=== PATIENT | male | born 1960 | race Caucasian/White ===

== ENCOUNTER 2016-10-01 11:22 | Observation (INO) | payer BC ==
--- NOTE | 2016-10-01 11:54 | ED ---
General Adult HPI - General Chief complaint: Chest Pain Stated complaint: RT SIDE CHEST AND BACK PAIN Time Seen by Provider: 10/01/16 11:26 Source: patient, RN notes reviewed, old records reviewed Mode of arrival: wheelchair Limitations: no limitations - History of Present Illness Initial comments: This is a 55-year-old out of the ER with severe chest pain, severe and anterior right-sided chest pain. No stress of breath no diaphoresis, symptoms occurred at work and it progressed. Patient does have significant heart disease and history of bypass. No prior are no recent cardiac evaluation - Related Data Home Medications Medication Instructions Recorded Confirmed Cetirizine HCl [Zyrtec] 10 mg PO DAILY 09/24/13 10/01/16 Furosemide [Lasix] 40 mg PO DAILY 09/24/13 10/01/16 Glimepiride [Amaryl] 2 mg PO AC-BRKFST 09/24/13 10/01/16 Lisinopril [Zestril] 20 mg PO BID 09/24/13 10/01/16 Pantoprazole Sodium 40 mg PO BID PRN 09/24/13 10/01/16 Potassium Chloride [Klor-Con 10] 10 meq PO DAILY 09/24/13 10/01/16 sitaGLIPtin PHOS/metFORMIN HCL 1 tab PO BID 09/24/13 10/01/16 [Janumet 50-1,000 mg Tablet] Ascorbic Acid [Vitamin C] 500 mg PO DAILY 03/19/14 10/01/16 Cholecalciferol [Vitamin D3] 1,000 unit PO DAILY 03/19/14 10/01/16 Isosorbide Mononitrate ER [Imdur] 30 mg PO DAILY 03/19/14 10/01/16 Cinnamon Bark [Cinnamon] 2,000 mg PO DAILY 05/30/15 10/01/16 Cyanocobalamin [Vitamin B-12] 1,000 mcg PO DAILY 05/30/15 10/01/16 Garlic 2 tab PO DAILY 05/30/15 10/01/16 Pravastatin Sodium [Pravachol] 80 mg PO HS 05/30/15 10/01/16 Metoprolol Tartrate [Lopressor] 100 mg PO BID 01/08/16 10/01/16 Multivit-Min/FA/Lycopen/Lutein 1 tab PO DAILY 01/08/16 10/01/16 [Centrum Silver Tablet] [place]-3 Fatty Acids/Fish Oil [Fish 1 cap PO DAILY 01/08/16 10/01/16 Oil 1,000 mg Softgel] Previous Rx's Medication Instructions Recorded Aspirin EC [Ecotrin Low Dose] 81 mg PO DAILY #30 tablet. 01/09/16 Allergies Allergy/AdvReac Type Severity Reaction Status Date / Time No Known Allergies Allergy Verified 10/01/16 13:20 Review of Systems ROS Statement: Those systems with pertinent positive or pertinent negative responses have been documented in the HPI. ROS Other: All systems not noted in ROS Statement are negative. Past Medical History Past Medical History: Chest Pain / Angina, Diabetes Mellitus, Hyperlipidemia, Hypertension Additional Past Medical History / Comment(s): gout, stress test History of Any Multi-Drug Resistant Organisms: None Reported Past Surgical History: Cholecystectomy, Coronary Bypass/CABG, Heart Catheterization With Stent Additional Past Surgical History / Comment(s): CABG AUGUST 2012 AT [facility], HEART CATH WITH STENTS X 2 A FEW YEARS PRIOR TO CABG AT [facility] Past Anesthesia/Blood Transfusion Reactions: No Reported Reaction Additional Past Anesthesia/Blood Transfusion Reaction / Comment(s): blood transfusion w/ cabg-no reacation Date of Last Stent Placement:: unk Past Psychological History: No Psychological Hx Reported Smoking Status: Never smoker Past Alcohol Use History: None Reported Past Drug Use History: None Reported - Past Family History Father History Unknown: Yes Family Medical History: Myocardial Infarction ([place]), Rheumatoid Arthritis ([place]) Additional Family Medical History / Comment(s): at 46 from [place], rheumatic fever when younger Mother Family Medical History: Dementia, Diabetes Mellitus General Exam Limitations: no limitations General appearance: alert, in no apparent distress Head exam: Present: atraumatic, normocephalic, normal inspection Eye exam: Present: normal appearance, PERRL, EOMI. Absent: scleral icterus, conjunctival injection, periorbital swelling ENT exam: Present: normal exam, mucous membranes moist Neck exam: Present: normal inspection. Absent: tenderness, meningismus, lymphadenopathy Respiratory exam: Present: normal lung sounds bilaterally. Absent: respiratory distress, wheezes, rales, rhonchi, stridor Cardiovascular Exam: Present: regular rate, normal rhythm, normal heart sounds. Absent: systolic murmur, diastolic murmur, rubs, gallop, clicks GI/Abdominal exam: Present: soft, normal bowel sounds. Absent: distended, tenderness, guarding, rebound, rigid Extremities exam: Present: normal inspection, full ROM, normal capillary refill. Absent: tenderness, pedal edema, joint swelling, calf tenderness Back exam: Present: normal inspection Neurological exam: Present: alert, oriented X3, CN II-XII intact Psychiatric exam: Present: normal affect, normal mood Skin exam: Present: warm, dry, intact, normal color. Absent: rash Course Vital Signs 10/01/16 10/01/16 11:23 12:42 Temperature 99.3 F Pulse Rate 82 79 Respiratory 16 20 Rate Blood Pressure 159/72 125/70 O2 Sat by Pulse 98 99 Oximetry - Reevaluation(s) Reevaluation #1: 10/01/16 13:46 Patient with continued chest pain at this time EKG Findings - EKG Comments: EKG Findings:: EKG shows normal sinus rhythm rate of 78, [place] 164, QRS 100, QTC 444 Medical Decision Making - Medical Decision Making 55 Male ER for evaluation today. This patient is visiting for evaluation regarding chest pain. History of chest pain history of heart disease history of bypass. Patient be admitted for cardiac observation - Lab Data Result diagrams: 10/01/16 12:12 10/01/16 12:12 Lab Results 10/01/16 10/01/16 10/01/16 Range/Units 12:12 12:12 12:12 WBC 5.4 (3.8-10.6) k/uL RBC 4.29 L (4.30-5.90) m/uL Hgb 13.5 (13.0-17.5) gm/dL Hct 38.5 L (39.0-53.0) % MCV 89.7 (80.0-100.0) fL MCH 31.5 (25.0-35.0) pg MCHC 35.1 (31.0-37.0) g/dL RDW 13.9 (11.5-15.5) % Plt Count 188 (150-450) k/uL Neutrophils % 68 % Lymphocytes % 21 % Monocytes % 6 % Eosinophils % 3 % Basophils % 1 % Neutrophils # 3.7 (1.3-7.7) k/uL Lymphocytes # 1.1 (1.0-4.8) k/uL Monocytes # 0.3 (0-1.0) k/uL Eosinophils # 0.2 (0-0.7) k/uL Basophils # 0.1 (0-0.2) k/uL PT (9.0-12.0) sec INR (<1.2) APTT (22.0-30.0) sec D-Dimer (<0.60) mg/L FEU Sodium 138 (137-145) mmol/L Potassium 4.7 (3.5-5.1) mmol/L Chloride 103 (98-107) mmol/L Carbon Dioxide 27 (22-30) mmol/L Anion Gap 8 mmol/L BUN 24 H (9-20) mg/dL Creatinine 1.04 (0.66-1.25) mg/dL Est GFR (MDRD) Af Amer >60 (>60 ml/min/1.73 sqM) Est GFR (MDRD) Non-Af >60 (>60 ml/min/1.73 sqM) Glucose 157 H (74-99) mg/dL Calcium 9.7 (8.4-10.2) mg/dL Magnesium 1.5 L (1.6-2.3) mg/dL Total Bilirubin 0.3 (0.2-1.3) mg/dL AST 17 (17-59) U/L ALT 38 (21-72) U/L Alkaline Phosphatase 56 (38-126) U/L Total Creatine Kinase 42 L (55-170) U/L CK-MB (CK-2) 1.4 (0.0-2.4) ng/mL CK-MB (CK-2) Rel Index 3.3 Troponin I <0.012 (0.000-0.034) ng/mL Total Protein 6.5 (6.3-8.2) g/dL Albumin 4.0 (3.5-5.0) g/dL Lipase 114 (23-300) U/L 10/01/16 Range/Units 12:12 WBC (3.8-10.6) k/uL RBC (4.30-5.90) m/uL Hgb (13.0-17.5) gm/dL Hct (39.0-53.0) % MCV (80.0-100.0) fL MCH (25.0-35.0) pg MCHC (31.0-37.0) g/dL RDW (11.5-15.5) % Plt Count (150-450) k/uL Neutrophils % % Lymphocytes % % Monocytes % % Eosinophils % % Basophils % % Neutrophils # (1.3-7.7) k/uL Lymphocytes # (1.0-4.8) k/uL Monocytes # (0-1.0) k/uL Eosinophils # (0-0.7) k/uL Basophils # (0-0.2) k/uL PT 9.9 (9.0-12.0) sec INR 1.0 (<1.2) APTT 22.1 (22.0-30.0) sec D-Dimer 0.25 (<0.60) mg/L FEU Sodium (137-145) mmol/L Potassium (3.5-5.1) mmol/L Chloride (98-107) mmol/L Carbon Dioxide (22-30) mmol/L Anion Gap mmol/L BUN (9-20) mg/dL Creatinine (0.66-1.25) mg/dL Est GFR (MDRD) Af Amer (>60 ml/min/1.73 sqM) Est GFR (MDRD) Non-Af (>60 ml/min/1.73 sqM) Glucose (74-99) mg/dL Calcium (8.4-10.2) mg/dL Magnesium (1.6-2.3) mg/dL Total Bilirubin (0.2-1.3) mg/dL AST (17-59) U/L ALT (21-72) U/L Alkaline Phosphatase (38-126) U/L Total Creatine Kinase (55-170) U/L CK-MB (CK-2) (0.0-2.4) ng/mL CK-MB (CK-2) Rel Index Troponin I (0.000-0.034) ng/mL Total Protein (6.3-8.2) g/dL Albumin (3.5-5.0) g/dL Lipase (23-300) U/L - Radiology Data Radiology results: report reviewed (Chest x-ray is negative for acute disease), image reviewed Critical Care Time Critical Care Time: Yes Total Critical Care Time: 31 Disposition Clinical Impression: Unstable angina pectoris, Chest pain Disposition: ADMITTED IP TO THIS HOSP Condition: Undetermined Instructions: Chest Pain (ED) Referrals: Sana Wills MD [Primary Care Provider] - 1-2 days
[2016-10-01 12:24] LABS: Basophils # (A) 0.1 k/uL (0-0.2); Basophils % (A) 1 %; CH 31.5; CHCM 35.3; Eosinophils # (A) 0.2 k/uL (0-0.7); Eosinophils % (A) 3 %; HCT 38.5 % (39.0-53.0); HDW 2.76; HGB 13.5 gm/dL (13.0-17.5); Luc # (Auto) 0.09; Luc % (Auto) 2; Lymphocytes # (A) 1.1 k/uL (1.0-4.8); Lymphocytes % (A) 21 %; MCH 31.5 pg (25.0-35.0); MCHC 35.1 g/dL (31.0-37.0); MCV 89.7 fL (80.0-100.0); Mean Platelet Volume 8.1; Monocytes # (A) 0.3 k/uL (0-1.0); Monocytes % (A) 6 %; Neutrophils # (A) 3.7 k/uL (1.3-7.7); Neutrophils % (A) 68 %; RBC 4.29 m/uL (4.30-5.90); RDW 13.9 % (11.5-15.5); WBC 5.4 k/uL (3.8-10.6)
--- NOTE | 2016-10-01 12:30 | XR ---
EXAMINATION TYPE: XR chest 2V DATE OF EXAM: 10/01/2016 COMPARISON: January 08, 2016 HISTORY: Shortness of breath TECHNIQUE: Frontal and lateral views of the chest are obtained. FINDINGS: Scattered senescent parenchymal changes noted. Hyperinflation compatible with COPD. No evidence for infiltrate. No evidence for atelectasis. Heart size is stable. Mediastinal structures are stable and grossly unremarkable. No evidence for hilar prominence. Degenerative changes dorsal spine. IMPRESSION: 1. No evidence for acute pulmonary disease.
[2016-10-01 12:36] LABS: ALT 38 U/L (21-72); AST 17 U/L (17-59); Alkaline Phosphatase 56 U/L (38-126); Anion Gap 8 mmol/L; Blood Urea Nitrogen 24 mg/dL (9-20); Calcium 9.7 mg/dL (8.4-10.2); Carbon Dioxide 27 mmol/L (22-30); Chloride 103 mmol/L (98-107); Glucose 157 mg/dL (74-99); Magnesium 1.5 mg/dL (1.6-2.3); Non-African American GFR(MDRD) >60 (>60 ml/min/1.73 sqM); Potassium 4.7 mmol/L (3.5-5.1); Sodium 138 mmol/L (137-145); Total Bilirubin 0.3 mg/dL (0.2-1.3); Total Protein 6.5 g/dL (6.3-8.2)
[2016-10-01 12:47] LABS: Partial Thromboplastin Time 22.1 sec (22.0-30.0); Prothrombin Time 9.9 sec (9.0-12.0)
[2016-10-01 12:51] LABS: Creatine Kinase 42 U/L (55-170)
[2016-10-01 13:04] LABS: Creatine Kinase MB 1.4 ng/mL (0.0-2.4); Troponin I <0.012 ng/mL (0.000-0.034)
[2016-10-01] MEDS ORDERED: HEPARIN SODIUM,PORCINE 5,000 UNIT/ML 1 ML VIAL IV PRN (13:43)
[2016-10-01] MEDS ORDERED: NITROGLYCERIN SL TABS 0.4 MG TAB SUBLINGUAL PRN (13:43)
[2016-10-01] MEDS ORDERED: HEPARIN SODIUM,PORCINE 5,000 UNIT/ML 1 ML VIAL IV ONE (13:43)
[2016-10-01] MEDS ORDERED: ASPIRIN 81 MG CHEW PO STA (13:43)
[2016-10-01] MEDS: HEPARIN SODIUM,PORCINE/D5W PMX 25,000 UNIT in DEXTROSE/WATER 1 500ML.BAG IV SCH (14:38)
[2016-10-01 17:08] LABS: Glucose,Whole Blood 138 mg/dL (75-99)
[2016-10-01] MEDS ORDERED: PANTOPRAZOLE 40 MG TABLET PO PRN (17:36)
[2016-10-01 18:24] LABS: Creatine Kinase 143 U/L (55-170)
[2016-10-01 18:37] LABS: Creatine Kinase MB 1.5 ng/mL (0.0-2.4); Troponin I <0.012 ng/mL (0.000-0.034)
[2016-10-01 20:49] LABS: Glucose,Whole Blood 205 mg/dL (75-99)
[2016-10-01] MEDS: PRAVASTATIN SODIUM 80 MG TAB PO SCH (21:24)
[2016-10-01] MEDS: LISINOPRIL 20 MG TAB PO SCH (21:24)
[2016-10-01] MEDS: METOPROLOL TARTRATE 50 MG TAB PO SCH (21:24)
[2016-10-01 22:33] LABS: Hemoglobin A1C 7.6 % (4.2-6.1)
[2016-10-02 01:18] LABS: Creatine Kinase 104 U/L (55-170)
[2016-10-02 01:29] LABS: Creatine Kinase MB 1.3 ng/mL (0.0-2.4); Troponin I <0.012 ng/mL (0.000-0.034)
[2016-10-02 06:59] LABS: Glucose,Whole Blood 221 mg/dL (75-99)
[2016-10-02] MEDS ORDERED: metFORMIN 500 MG TAB PO SCH (07:30)
[2016-10-02 07:39] LABS: Mean Platelet Volume 7.7
[2016-10-02 07:52] LABS: Cholesterol 165 mg/dL (<200); HDL Cholesterol 35 mg/dL (40-60)
[2016-10-02] MEDS ORDERED: NON-FORMULARY DRUG (Omega-3 Fatty Acids/Fish Oil [Fish Oil 1,000 Mg Softgel] 1 CAP) PO SCH (09:00)
[2016-10-02] MEDS ORDERED: CINNAMON BARK 2000 MG PO SCH (09:00)
[2016-10-02] MEDS ORDERED: GARLIC PO SCH (09:00)
[2016-10-02 09:31] LABS: Basophils % (A) 1 %; CHCM 34.2; Eosinophils # (A) 0.2 k/uL (0-0.7); Eosinophils % (A) 4 %; HCT 38.5 % (39.0-53.0); HDW 2.74; HGB 13.2 gm/dL (13.0-17.5); Luc # (Auto) 0.08; Luc % (Auto) 2; Lymphocytes # (A) 1.1 k/uL (1.0-4.8); Lymphocytes % (A) 29 %; MCH 31.2 pg (25.0-35.0); MCHC 34.2 g/dL (31.0-37.0); MCV 91.1 fL (80.0-100.0); Monocytes # (A) 0.2 k/uL (0-1.0); Monocytes % (A) 6 %; Neutrophils # (A) 2.2 k/uL (1.3-7.7); Neutrophils % (A) 58 %; RBC 4.23 m/uL (4.30-5.90); RDW 13.2 % (11.5-15.5); WBC 3.9 k/uL (3.8-10.6); WBC (Perox) 4.31
[2016-10-02 09:39] LABS: ALT 40 U/L (21-72); AST 16 U/L (17-59); Alkaline Phosphatase 54 U/L (38-126); Anion Gap 9 mmol/L; Blood Urea Nitrogen 18 mg/dL (9-20); Calcium 9.6 mg/dL (8.4-10.2); Carbon Dioxide 25 mmol/L (22-30); Chloride 106 mmol/L (98-107); Glucose 210 mg/dL (74-99); Non-African American GFR(MDRD) >60 (>60 ml/min/1.73 sqM); Potassium 4.5 mmol/L (3.5-5.1); Sodium 140 mmol/L (137-145); Total Bilirubin 0.4 mg/dL (0.2-1.3)
[2016-10-02] MEDS: ASPIRIN 81 MG CHEW PO SCH (10:04)
--- NOTE | 2016-10-02 10:36 | P.HPIM ---
History of Present Illness H&P Date: 10/02/16 Chief Complaint: Chest pain This is a 55-year-old male, patient of Dr. Wills. He has a known past medical history of hypertension, hyperlipidemia, diabetes mellitus, anxiety, coronary artery disease with previous CABG in 2012 and history of cardiac stents. Patient reports having chest pain on the right side of his chest and in the back started yesterday at 9:00 in the morning at work. He went home from work and was still having the chest pain so he presented to the emergency room for further evaluation and treatment. Patient also is having some a pheresis and nausea. He denies any shortness of breath. He does report that the pain didn' t move up into the right side of his neck. His last stress test was in May 2015 which was negative. Chest x-rays for today is negative EKG had shown a normal sinus rhythm and troponins are negative 2. Patient started on IV heparin in the emergency room and cardiology was consulted. Patient also reports having diarrhea that has been ongoing for the last couple a days. Nostrils been watery no blood reported. He is concerned of possible parasites. He was treated for possible parasites about [address] Wills's office. He is unsure of exact medication that was given. Stool studies have been ordered and he'll be started on Flagyl 500 mg 3 times a day. GI service will be consulted. His last colonoscopy was about 3 years ago and he reports having some polyps removed. D-dimer was 0.25. Hemoglobin A1c is 7.6. Review of Systems Please refer to HPI otherwise unremarkable Past Medical History Past Medical History: Chest Pain / Angina, Diabetes Mellitus, Hyperlipidemia, Hypertension Additional Past Medical History / Comment(s): gout, stress test History of Any Multi-Drug Resistant Organisms: None Reported Past Surgical History: Cholecystectomy, Coronary Bypass/CABG, Heart Catheterization With Stent Additional Past Surgical History / Comment(s): QUAD CABG AUGUST 2012 AT [facility], HEART CATH WITH STENTS X 2 A FEW YEARS PRIOR TO CABG AT [facility],COLONOSOCPY/ POLYPECTOMY(BENIGN) Past Anesthesia/Blood Transfusion Reactions: No Reported Reaction Additional Past Anesthesia/Blood Transfusion Reaction / Comment(s): blood transfusion w/ cabg-no reacation Date of Last Stent Placement:: unk Smoking Status: Never smoker - Past Family History Father History Unknown: Yes Family Medical History: Myocardial Infarction ([place]), Rheumatoid Arthritis ([place]) Additional Family Medical History / Comment(s): at 46 from mi, rheumatic fever when younger Mother Family Medical History: Dementia, Diabetes Mellitus Medications and Allergies Home Medications Medication Instructions Recorded Confirmed Type Cetirizine HCl [Zyrtec] 10 mg PO DAILY 09/24/13 10/01/16 History Furosemide [Lasix] 40 mg PO DAILY 09/24/13 10/01/16 History Glimepiride [Amaryl] 2 mg PO AC-BRKFST 09/24/13 10/01/16 History Lisinopril [Zestril] 20 mg PO BID 09/24/13 10/01/16 History Pantoprazole Sodium 40 mg PO BID PRN 09/24/13 10/01/16 History Potassium Chloride [Klor-Con 10] 10 meq PO DAILY 09/24/13 10/01/16 History sitaGLIPtin PHOS/metFORMIN HCL 1 tab PO BID 09/24/13 10/01/16 History [Janumet 50-1,000 mg Tablet] Ascorbic Acid [Vitamin C] 500 mg PO DAILY 03/19/14 10/01/16 History Cholecalciferol [Vitamin D3] 1,000 unit PO DAILY 03/19/14 10/01/16 History Isosorbide Mononitrate ER [Imdur] 30 mg PO DAILY 03/19/14 10/01/16 History Cinnamon Bark [Cinnamon] 2,000 mg PO DAILY 05/30/15 10/01/16 History Cyanocobalamin [Vitamin B-12] 1,000 mcg PO DAILY 05/30/15 10/01/16 History Garlic 2 tab PO DAILY 05/30/15 10/01/16 History Pravastatin Sodium [Pravachol] 80 mg PO HS 05/30/15 10/01/16 History Metoprolol Tartrate [Lopressor] 100 mg PO BID 01/08/16 10/01/16 History Multivit-Min/FA/Lycopen/Lutein 1 tab PO DAILY 01/08/16 10/01/16 History [Centrum Silver Tablet] [place]-3 Fatty Acids/Fish Oil [Fish 1 cap PO DAILY 01/08/16 10/01/16 History Oil 1,000 mg Softgel] Allergies Allergy/AdvReac Type Severity Reaction Status Date / Time No Known Allergies Allergy Verified 10/01/16 13:20 Physical Exam Vitals: Vital Signs Temp Pulse Pulse Resp BP BP Pulse Ox 10/02/16 09:10 96 10/02/16 07:48 98.5 F 67 16 134/84 97 10/02/16 04:00 72 18 10/02/16 03:23 98.7 F 75 18 145/72 97 10/02/16 00:00 66 16 10/01/16 23:44 98.8 F 66 16 135/69 95 10/01/16 20:00 78 16 10/01/16 19:53 98.4 F 78 16 113/60 95 10/01/16 15:12 98.0 F 72 18 140/79 98 10/01/16 14:48 97.8 F 77 16 123/78 98 10/01/16 14:15 98.0 F 77 16 118/72 98 10/01/16 12:42 79 20 125/70 99 10/01/16 11:23 99.3 F 82 16 159/72 98 Intake and Output 10/01/16 10/02/16 10/02/16 22:59 06:59 14:59 Intake Total 920 477 Balance 920 477 Intake: IV 120 284 0.9 NS @ 10ml/hr 40 80 Heparin Sodium,Porcine/ 80 204 D5w Pmx 25,000 unit In Dextrose/Water 1 500ml. bag @ 9.186 UNITS/KG/HR 20 mls/hr IV .Q24H ЕКАТЕРИНА Rx #:[id number] Intake, IV Titration 193 Amount Heparin Sodium,Porcine/ 193 D5w Pmx 25,000 unit In Dextrose/Water 1 500ml. bag @ 9.186 UNITS/KG/HR 20 mls/hr IV .Q24H ЕКАТЕРИНА Rx #:[id number] Oral 800 Other: Voiding Method Toilet Toilet # Voids 2 4 Weight 110.9 kg Head normocephalic Neck supple Lungs clear to auscultation bilaterally no wheezing or crackles Heart regular rate and rhythm S1-S2, no rub or gallop Abdomen is soft nontender nondistended positive bowel sounds no hepatosplenomegaly Extremities no edema Neuro alert and orientated to 3 Results CBC & Chem 7: 10/02/16 06:56 10/02/16 06:56 Labs: Abnormal Lab Results - Last 24 Hours (Table) 10/01/16 10/01/16 10/01/16 Range/Units 12:12 12:12 12:12 RBC 4.29 L (4.30-5.90) m/uL Hct 38.5 L (39.0-53.0) % APTT (22.0-30.0) sec BUN 24 H (9-20) mg/dL Glucose 157 H (74-99) mg/dL POC Glucose (mg/dL) (75-99) mg/dL Hemoglobin A1c (4.2-6.1) % Magnesium 1.5 L (1.6-2.3) mg/dL AST (17-59) U/L Total Creatine Kinase 42 L (55-170) U/L Total Protein (6.3-8.2) g/dL Albumin (3.5-5.0) g/dL Triglycerides (<150) mg/dL HDL Cholesterol (40-60) mg/dL 10/01/16 10/01/16 10/01/16 Range/Units 17:06 20:39 20:46 RBC (4.30-5.90) m/uL Hct (39.0-53.0) % APTT (22.0-30.0) sec BUN (9-20) mg/dL Glucose (74-99) mg/dL POC Glucose (mg/dL) 138 H 205 H (75-99) mg/dL Hemoglobin A1c 7.6 H (4.2-6.1) % Magnesium (1.6-2.3) mg/dL AST (17-59) U/L Total Creatine Kinase (55-170) U/L Total Protein (6.3-8.2) g/dL Albumin (3.5-5.0) g/dL Triglycerides (<150) mg/dL HDL Cholesterol (40-60) mg/dL 10/02/16 10/02/16 10/02/16 Range/Units 06:48 06:56 06:56 RBC 4.23 L (4.30-5.90) m/uL Hct 38.5 L (39.0-53.0) % APTT (22.0-30.0) sec BUN (9-20) mg/dL Glucose (74-99) mg/dL POC Glucose (mg/dL) 221 H (75-99) mg/dL Hemoglobin A1c (4.2-6.1) % Magnesium (1.6-2.3) mg/dL AST (17-59) U/L Total Creatine Kinase (55-170) U/L Total Protein (6.3-8.2) g/dL Albumin (3.5-5.0) g/dL Triglycerides 222 H (<150) mg/dL HDL Cholesterol 35 L (40-60) mg/dL 10/02/16 10/02/16 Range/Units 06:56 06:56 RBC (4.30-5.90) m/uL Hct (39.0-53.0) % APTT 34.8 H (22.0-30.0) sec BUN (9-20) mg/dL Glucose 210 H (74-99) mg/dL POC Glucose (mg/dL) (75-99) mg/dL Hemoglobin A1c (4.2-6.1) % Magnesium (1.6-2.3) mg/dL AST 16 L (17-59) U/L Total Creatine Kinase (55-170) U/L Total Protein 6.0 L (6.3-8.2) g/dL Albumin 3.4 L (3.5-5.0) g/dL Triglycerides (<150) mg/dL HDL Cholesterol (40-60) mg/dL Microbiology - Last 24 Hours (Table) 10/01/16 13:00 Stool Culture - Preliminary Stool Assessment and Plan Plan: 1. Chest pain: Troponins negative 2 sets. EKG showing normal sinus rhythm. Chest x-ray negative. Patient on IV heparin. Cardiology consulted. Previous stress test May 2015 which was negative 2. Diarrhea with possible parasites. Stool studies ordered. Patient will be started on Flagyl 500 mg 3 times a day. GI service consulted. 3. History of coronary artery disease with previous coronary bypass graft in August 2012. Also history of cardiac stents 4. Essential hypertension blood pressure stable. Resume home blood pressure medications 5. Hyperlipidemia continue statin 6. Diabetes mellitus type 2: Hold metformin and hospitalization. We'll add sliding scale coverage. Continue trigger gentle 5 mg daily and Amaryl 2 mg with breakfast 7. Hypomagnesemia: Magnesium level 1.5. Recheck magnesium level today if remains low we'll replace GI prophylaxis Protonix and DVT prophylaxis heparin IV Time with Patient: Greater than 30 (Greater than 50% of the total time spent in counseling and coordination of care.I performed an examination of the patient and discussed their management with the physician Swiss Machinist. I have reviewed the Physician Swiss Machinist's notes and agree with the documented findings and plan of care)
--- NOTE | 2016-10-02 10:39 | P.CRDCN ---
History of Present Illness Consult date: 10/02/16 History of present illness: This is a 55-year-old gentleman with history of coronary artery disease, hypertension, hyperlipidemia and diabetes mellitus with previous bypass surgery done in 2012. Patient had a ESPINOZA graft to the LAD, vein graft to the OM branch 1 and 2 and the vein graft to the diagonal. Patient had a cardiac catheterization 2013 and was noted to have patent ESPINOZA and graft to OM but occluded vein graft to the diagonal. Since then patient had admissions from time to time with atypical chest pain the last one being in January 2016. Yesterday he presented to the emergency room because of chest pain which is right-sided going to the back lasting about 10 minutes. Patient will mildly sweaty. No complaints of nausea vomiting or sweating. Patient has been stable since that time. His EKG did not reveal any acute changes. His cardiac enzymes are negative. His pains appear to be atypical, lasting only 10 minutes. Since then patient has been stable. Patient could be discharged home. Follow-up and evaluation as an outpatient by Dr. Jefferson in one week Review of Systems As per the chart Past Medical History Past Medical History: Chest Pain / Angina, Diabetes Mellitus, Hyperlipidemia, Hypertension Additional Past Medical History / Comment(s): gout, stress test History of Any Multi-Drug Resistant Organisms: None Reported Past Surgical History: Cholecystectomy, Coronary Bypass/CABG, Heart Catheterization With Stent Additional Past Surgical History / Comment(s): QUAD CABG AUGUST 2012 AT [facility], HEART CATH WITH STENTS X 2 A FEW YEARS PRIOR TO CABG AT [facility],COLONOSOCPY/ POLYPECTOMY(BENIGN) Past Anesthesia/Blood Transfusion Reactions: No Reported Reaction Additional Past Anesthesia/Blood Transfusion Reaction / Comment(s): blood transfusion w/ cabg-no reacation Date of Last Stent Placement:: unk Smoking Status: Never smoker - Past Family History Father History Unknown: Yes Family Medical History: Myocardial Infarction ([place]), Rheumatoid Arthritis ([place]) Additional Family Medical History / Comment(s): at 46 from [place], rheumatic fever when younger Mother Family Medical History: Dementia, Diabetes Mellitus Medications and Allergies Home Medications Medication Instructions Recorded Confirmed Type Cetirizine HCl [Zyrtec] 10 mg PO DAILY 09/24/13 10/01/16 History Furosemide [Lasix] 40 mg PO DAILY 09/24/13 10/01/16 History Glimepiride [Amaryl] 2 mg PO AC-BRKFST 09/24/13 10/01/16 History Lisinopril [Zestril] 20 mg PO BID 09/24/13 10/01/16 History Pantoprazole Sodium 40 mg PO BID PRN 09/24/13 10/01/16 History Potassium Chloride [Klor-Con 10] 10 meq PO DAILY 09/24/13 10/01/16 History sitaGLIPtin PHOS/metFORMIN HCL 1 tab PO BID 09/24/13 10/01/16 History [Janumet 50-1,000 mg Tablet] Ascorbic Acid [Vitamin C] 500 mg PO DAILY 03/19/14 10/01/16 History Cholecalciferol [Vitamin D3] 1,000 unit PO DAILY 03/19/14 10/01/16 History Isosorbide Mononitrate ER [Imdur] 30 mg PO DAILY 03/19/14 10/01/16 History Cinnamon Bark [Cinnamon] 2,000 mg PO DAILY 05/30/15 10/01/16 History Cyanocobalamin [Vitamin B-12] 1,000 mcg PO DAILY 05/30/15 10/01/16 History Garlic 2 tab PO DAILY 05/30/15 10/01/16 History Pravastatin Sodium [Pravachol] 80 mg PO HS 05/30/15 10/01/16 History Metoprolol Tartrate [Lopressor] 100 mg PO BID 01/08/16 10/01/16 History Multivit-Min/FA/Lycopen/Lutein 1 tab PO DAILY 01/08/16 10/01/16 History [Centrum Silver Tablet] [place]-3 Fatty Acids/Fish Oil [Fish 1 cap PO DAILY 01/08/16 10/01/16 History Oil 1,000 mg Softgel] Allergies Allergy/AdvReac Type Severity Reaction Status Date / Time No Known Allergies Allergy Verified 10/01/16 13:20 Physical Exam Vitals: Vital Signs Temp Pulse Pulse Resp BP BP Pulse Ox 10/02/16 09:10 96 10/02/16 07:48 98.5 F 67 16 134/84 97 10/02/16 04:00 72 18 10/02/16 03:23 98.7 F 75 18 145/72 97 10/02/16 00:00 66 16 10/01/16 23:44 98.8 F 66 16 135/69 95 10/01/16 20:00 78 16 10/01/16 19:53 98.4 F 78 16 113/60 95 10/01/16 15:12 98.0 F 72 18 140/79 98 10/01/16 14:48 97.8 F 77 16 123/78 98 10/01/16 14:15 98.0 F 77 16 118/72 98 10/01/16 12:42 79 20 125/70 99 10/01/16 11:23 99.3 F 82 16 159/72 98 Intake and Output 10/01/16 10/02/16 10/02/16 22:59 06:59 14:59 Intake Total 920 477 Balance 920 477 Intake: IV 120 284 0.9 NS @ 10ml/hr 40 80 Heparin Sodium,Porcine/ 80 204 D5w Pmx 25,000 unit In Dextrose/Water 1 500ml. bag @ 9.186 UNITS/KG/HR 20 mls/hr IV .Q24H [facility] Rx #:[id number] Intake, IV Titration 193 Amount Heparin Sodium,Porcine/ 193 D5w Pmx 25,000 unit In Dextrose/Water 1 500ml. bag @ 9.186 UNITS/KG/HR 20 mls/hr IV .Q24H ЕКАТЕРИНА Rx #:[id number] Oral 800 Other: Voiding Method Toilet Toilet # Voids 2 4 Weight 110.9 kg GENERAL EXAM: Patient is alert and oriented and doesn't appear to be in any acute distress HEENT: Normocephalic. Normal reaction of pupils, equal size, normal range of extraocular motion. No erythema or exudates in the throat. NECK: No masses, no nuchal rigidity. CHEST: No chest wall deformity. LUNGS: Equal air entry with no crackles or wheeze. HEART: S1 and S2 normal with no audible mumurs or gallops. Regular rhythm, femorals equal on both sides.. ABDOMEN: No hepatosplenomegaly, normal bowel sounds, no guarding or rigidity. SKIN: No rashes CENTRAL NERVOUS SYSTEM: No focal deficits. EXTREMITIES: No cyanosis, clubbing or edema. Results 10/02/16 06:56 10/02/16 06:56 Cardiac Enzymes 10/01/16 10/01/16 10/01/16 Range/Units 12:12 12:12 17:45 AST 17 (17-59) U/L CK-MB (CK-2) 1.4 1.5 (0.0-2.4) ng/mL Troponin I <0.012 <0.012 (0.000-0.034) ng/mL 10/02/16 10/02/16 Range/Units 00:10 06:56 AST 16 L (17-59) U/L CK-MB (CK-2) 1.3 (0.0-2.4) ng/mL Troponin I <0.012 (0.000-0.034) ng/mL Coagulation 10/01/16 10/01/16 10/02/16 Range/Units 12:12 20:46 06:56 PT 9.9 (9.0-12.0) sec APTT 22.1 25.9 34.8 H (22.0-30.0) sec Lipids 10/02/16 Range/Units 06:56 Triglycerides 222 H (<150) mg/dL Cholesterol 165 (<200) mg/dL HDL Cholesterol 35 L (40-60) mg/dL CBC 10/01/16 10/02/16 Range/Units 12:12 06:56 WBC 5.4 3.9 (3.8-10.6) k/uL RBC 4.29 L 4.23 L (4.30-5.90) m/uL Hgb 13.5 13.2 (13.0-17.5) gm/dL Hct 38.5 L 38.5 L (39.0-53.0) % Plt Count 188 164 (150-450) k/uL Comprehensive Metabolic Panel 10/01/16 10/02/16 Range/Units 12:12 06:56 Sodium 138 140 (137-145) mmol/L Potassium 4.7 4.5 (3.5-5.1) mmol/L Chloride 103 106 (98-107) mmol/L Carbon Dioxide 27 25 (22-30) mmol/L BUN 24 H 18 (9-20) mg/dL Creatinine 1.04 0.93 (0.66-1.25) mg/dL Glucose 157 H 210 H (74-99) mg/dL Calcium 9.7 9.6 (8.4-10.2) mg/dL AST 17 16 L (17-59) U/L ALT 38 40 (21-72) U/L Alkaline Phosphatase 56 54 (38-126) U/L Total Protein 6.5 6.0 L (6.3-8.2) g/dL Albumin 4.0 3.4 L (3.5-5.0) g/dL Current Medications Generic Name Dose Route Start Last Admin Trade Name Freq PRN Reason Stop Dose Admin Ascorbic Acid 500 mg 10/02/16 09:00 Vitamin C PO DAILY [facility] Aspirin 325 mg 10/02/16 09:00 Aspirin PO DAILY [facility] Aspirin 81 mg 10/02/16 09:00 10/02/16 10:04 Aspirin PO Not Given DAILY [facility] Cholecalciferol 1,000 unit 10/02/16 09:00 Vitamin D3 PO DAILY [facility] Cyanocobalamin 1,000 mcg 10/02/16 09:00 Vitamin B-12 PO DAILY [facility] Furosemide 40 mg 10/02/16 09:00 Lasix PO DAILY [facility] Glimepiride 2 mg 10/02/16 07:30 Amaryl PO AC-BRKFST [facility] Heparin Sodium (Porcine) 0 unit 10/01/16 13:43 10/02/16 00:19 Heparin IV 4,000 unit Q6HR PRN Administration Low PTT Protocol Heparin Sodium/Dextrose 25,000 500 mls @ 20 mls/hr 10/01/16 13:45 10/02/16 00 :17 unit/ IV Solution IV 12.186 units/kg/hr .Q24H [facility] 26.53 mls/hr Protocol Titration 9.186 UNITS/KG/HR Insulin Human Lispro 0 unit 10/02/16 12:30 Humalog SQ ACHS [facility] Protocol Isosorbide Mononitrate 30 mg 10/02/16 09:00 Imdur PO DAILY [facility] Linagliptin 5 mg 10/02/16 09:00 Tradjenta PO DAILY [facility] Lisinopril 20 mg 10/01/16 21:00 10/01/16 21:24 Zestril PO 20 mg BID [facility] Administration Loratadine 10 mg 10/02/16 09:00 Claritin PO DAILY [facility] Metoprolol Tartrate 100 mg 10/01/16 21:00 10/01/16 21:24 Lopressor PO 100 mg BID [facility] Administration Metronidazole 500 mg 10/02/16 10:30 Flagyl PO TID [facility] Multivitamins 1 each 10/02/16 09:00 Theragran PO DAILY [facility] Nitroglycerin 0.4 mg 10/01/16 13:43 Nitrostat SUBLINGUAL Q5M PRN Chest Pain Potassium Chloride 10 meq 10/02/16 09:00 K-Dur 10 PO DAILY [facility] Pravastatin Sodium 80 mg 10/01/16 21:00 10/01/16 21:24 Pravachol PO 80 mg HS [facility] Administration Intake and Output 10/01/16 10/02/16 10/02/16 22:59 06:59 14:59 Intake Total 920 477 Balance 920 477 Intake: IV 120 284 0.9 NS @ 10ml/hr 40 80 Heparin Sodium,Porcine/ 80 204 D5w Pmx 25,000 unit In Dextrose/Water 1 500ml. bag @ 9.186 UNITS/KG/HR 20 mls/hr IV .Q24H [facility] Rx #:[id number] Intake, IV Titration 193 Amount Heparin Sodium,Porcine/ 193 D5w Pmx 25,000 unit In Dextrose/Water 1 500ml. bag @ 9.186 UNITS/KG/HR 20 mls/hr IV .Q24H [facility] Rx #:[id number] Oral 800 Other: Voiding Method Toilet Toilet # Voids 2 4 Weight 110.9 kg 10/02/16 06:56 10/02/16 06:56 EKG Interpretations (text) Sinus rhythm Assessment and Plan Plan: Patient's chest pain appeared to be typical. Cardec enzymes and EKGs are okay. Patient could be discharged home. Follow-up with Dr. Jefferson in one week
[2016-10-02] MEDS: ASCORBIC ACID 500 MG TAB PO SCH (11:10)
[2016-10-02] MEDS: GLIMEPIRIDE 2 MG TAB PO SCH (11:10)
[2016-10-02] MEDS: CHOLECALCIFEROL 1,000 UNIT TAB PO SCH (11:10)
[2016-10-02] MEDS: ASPIRIN 325 MG TAB PO SCH (11:10)
[2016-10-02] MEDS: CYANOCOBALAMIN 500 MCG TAB PO SCH (11:11)
[2016-10-02] MEDS: ISOSORBIDE MONONITRATE ER 30 MG TAB.ER.24H PO SCH (11:12)
[2016-10-02] MEDS: FUROSEMIDE 20 MG TAB PO SCH (11:12)
[2016-10-02] MEDS: LINAGLIPTIN 5 MG TABLET PO SCH (11:12)
[2016-10-02] MEDS: LISINOPRIL 20 MG TAB PO SCH ×2 (11:12→22:21)
[2016-10-02] MEDS: LORATADINE 10 MG TAB PO SCH (11:13)
[2016-10-02] MEDS: POTASSIUM CHLORIDE ER 10 MEQ TAB.ER.PRT PO SCH (11:13)
[2016-10-02] MEDS: METOPROLOL TARTRATE 50 MG TAB PO SCH ×2 (11:13→22:21)
[2016-10-02] MEDS: MULTIVITAMINS, THERA 1 EACH TAB PO SCH (11:13)
[2016-10-02] MEDS: metroNIDAZOLE 500 MG TAB PO SCH ×3 (11:14→22:21)
[2016-10-02 11:41] LABS: Hemoglobin A1C 7.6 % (4.2-6.1)
[2016-10-02 12:15] LABS: Glucose,Whole Blood 324 mg/dL (75-99)
[2016-10-02] MEDS: INSULIN LISPRO (humaLOG) 300 UNIT/3 ML VIAL SQ SCH ×2 (12:45→17:38)
--- NOTE | 2016-10-02 14:16 | XR ---
2 view abdomen HISTORY: Abdominal pain 2 views of the abdomen on 4 images correlated to prior exam 11/17/2012 Interval surgical clip placement in the right upper quadrant. There are overlying cardiac leads. Caprice ent is post median sternotomy. There are air-fluid levels without bowel distention. Calcifications garcia spected within the right kidney. Overlying bowel gas obscures detail. Probable phleboliths in the pel vis. Vascular calcifications also noted within the left groin. IMPRESSION: Right-sided nephrolithiasis. Correlate for ileus or enteritis.
[2016-10-02 17:33] LABS: Glucose,Whole Blood 97 mg/dL (75-99)
[2016-10-02] MEDS: HEPARIN SODIUM,PORCINE/D5W PMX 25,000 UNIT in DEXTROSE/WATER 1 500ML.BAG IV SCH (22:19)
[2016-10-02] MEDS: PRAVASTATIN SODIUM 80 MG TAB PO SCH (22:21)
[2016-10-02 22:38] LABS: Glucose,Whole Blood 139 mg/dL (75-99)
[2016-10-03] MEDS: INSULIN LISPRO (humaLOG) 300 UNIT/3 ML VIAL SQ SCH ×3 (03:19→16:04)
[2016-10-03 07:02] LABS: Basophils % (A) 1 %; CH 31.5; CHCM 34.8; Eosinophils # (A) 0.2 k/uL (0-0.7); Eosinophils % (A) 4 %; HCT 39.8 % (39.0-53.0); HDW 2.74; HGB 13.4 gm/dL (13.0-17.5); Luc # (Auto) 0.12; Luc % (Auto) 2; Lymphocytes # (A) 1.2 k/uL (1.0-4.8); Lymphocytes % (A) 24 %; MCH 30.6 pg (25.0-35.0); MCHC 33.5 g/dL (31.0-37.0); MCV 91.1 fL (80.0-100.0); Mean Platelet Volume 7.8; Monocytes # (A) 0.3 k/uL (0-1.0); Monocytes % (A) 6 %; Neutrophils # (A) 3.4 k/uL (1.3-7.7); Neutrophils % (A) 64 %; RBC 4.37 m/uL (4.30-5.90); RDW 14.2 % (11.5-15.5); WBC 5.3 k/uL (3.8-10.6); WBC (Perox) 5.13
[2016-10-03 07:15] LABS: Glucose,Whole Blood 177 mg/dL (75-99)
[2016-10-03] MEDS ORDERED: PANTOPRAZOLE 40 MG TABLET PO SCH (07:30)
[2016-10-03 07:32] LABS: ALT 39 U/L (21-72); AST 18 U/L (17-59); Alkaline Phosphatase 51 U/L (38-126); Anion Gap 6 mmol/L; Blood Urea Nitrogen 16 mg/dL (9-20); Calcium 9.8 mg/dL (8.4-10.2); Carbon Dioxide 27 mmol/L (22-30); Chloride 105 mmol/L (98-107); Glucose 167 mg/dL (74-99); Non-African American GFR(MDRD) >60 (>60 ml/min/1.73 sqM); Potassium 4.5 mmol/L (3.5-5.1); Sodium 138 mmol/L (137-145); Total Bilirubin 0.6 mg/dL (0.2-1.3); Total Protein 6.2 g/dL (6.3-8.2)
[2016-10-03] MEDS: GLIMEPIRIDE 2 MG TAB PO SCH (08:40)
[2016-10-03] MEDS: ASCORBIC ACID 500 MG TAB PO SCH (08:41)
[2016-10-03] MEDS: ASPIRIN 325 MG TAB PO SCH (08:41)
[2016-10-03] MEDS: CYANOCOBALAMIN 500 MCG TAB PO SCH (08:42)
[2016-10-03] MEDS: FUROSEMIDE 20 MG TAB PO SCH (08:42)
[2016-10-03] MEDS: CHOLECALCIFEROL 1,000 UNIT TAB PO SCH (08:42)
[2016-10-03] MEDS: ASPIRIN 81 MG CHEW PO SCH (08:42)
[2016-10-03] MEDS: LINAGLIPTIN 5 MG TABLET PO SCH (08:43)
[2016-10-03] MEDS: ISOSORBIDE MONONITRATE ER 30 MG TAB.ER.24H PO SCH (08:43)
[2016-10-03] MEDS: LISINOPRIL 20 MG TAB PO SCH (08:43)
[2016-10-03] MEDS: LORATADINE 10 MG TAB PO SCH (08:44)
[2016-10-03] MEDS: POTASSIUM CHLORIDE ER 10 MEQ TAB.ER.PRT PO SCH (08:44)
[2016-10-03] MEDS: metroNIDAZOLE 500 MG TAB PO SCH (08:44)
[2016-10-03] MEDS: METOPROLOL TARTRATE 50 MG TAB PO SCH (08:44)
[2016-10-03] MEDS: MULTIVITAMINS, THERA 1 EACH TAB PO SCH (08:45)
--- NOTE | 2016-10-03 11:22 | CONS ---
DATE OF SERVICE: 10/03/2016 REASON FOR CONSULTATION: Abdominal pain, nausea, vomiting and diarrhea. HISTORY OF PRESENT ILLNESS: The patient is a 55-year-old pleasant white male with history of hypertension, hyperlipidemia, diabetes mellitus was admitted to the hospital because of severe chest pain, mostly in the retrosternal area radiating to the right side of the jaw and into the back that started yesterday. He was evaluated by Cardiology, had cardiac workup done, which was all negative. In the meantime, he was complaining of epigastric discomfort with occasional nausea, some emesis and intermittent diarrhea on and off for the last few days. He was having about 4 to 5 bowel movements daily. No blood or mucus in the stool. This morning the abdominal pain is better. The nausea and vomiting is better and so is the diarrhea. He says that he did have a colonoscopy about 3 years ago that was unremarkable. He also complains of occasional heartburn, reports no prior history of peptic ulcer disease or recent NSAID use. In regards to the diarrhea, he was treated empirically with Flagyl for 10 days by his family physician about 3 weeks ago. He is concerned about infectious etiology. He did have stool studies done during this hospitalization and was reported as negative. His past medical history is significant for diabetes mellitus, hypertension, hyperlipidemia. PAST SURGICAL HISTORY: Cholecystectomy, coronary artery bypass surgery, prior history of colonoscopy in the past. Medications at home include: 1. Zyrtec. 2. Lasix. 3. Amaryl. 4. Zestril. 5. K-Mari. 6. Metformin. 7. Vitamin C. 8. Vitamin D. 9. Imdur. 10. Cinnamon. 11. Pravachol. 12. Lopressor. 13. Centrum Silver. 14. Fish oil. ALLERGIES: None. SOCIAL HISTORY: No smoking or alcohol use. FAMILY HISTORY: Father has rheumatoid arthritis and [place]. Mother has diabetes mellitus and dementia. REVIEW OF SYSTEMS: CARDIOPULMONARY: No chest pain or shortness of breath. GENITOURINARY: No dysuria or hematuria. MUSCULOSKELETAL: Unremarkable. SKIN: Unremarkable. ENDOCRINE: Unremarkable. PSYCHIATRY: Unremarkable. NEUROLOGY: Unremarkable. ENT/VISION: Unremarkable. CONSTITUTIONAL: No recent weight loss. No fever, chills or night sweats. On physical examination, he appears comfortable, in no apparent distress. Vital signs are stable. Blood pressure is 130/72, pulse rate 54, temperature 98.5. HEENT EXAMINATION: Unremarkable. Conjunctivae pink. Sclerae anicteric. Oral cavity, no lesions. NECK: No JVD or lymph node enlargement. CHEST: Clear to auscultation. HEART: Regular rate and rhythm. ABDOMEN: Soft. Bowel sounds are positive. No organomegaly. EXTREMITIES: No pedal edema. SKIN: No rashes. NEURO: Alert and oriented x3. No focal deficits. Labs done at the time of admission to hospital, CBC with ( ) WBC 5.3, hemoglobin 13.4, platelets 163. Basic metabolic panel is within normal limits. ALT, AST, T-bili and Alk phos are within normal limits. Stool for Giardia negative. Cryptosporidium is negative. The rest of the labs are pending. IMPRESSION: This is a patient who presents to the hospital with atypical chest pain. Cardiac workup is negative and presently the chest pain is resolved. He is also having intermittent episodes of epigastric pain associated with nausea, vomiting and diarrhea on and off for the last 3 weeks duration. He was treated empirically with Flagyl on outpatient basis for possible infectious etiology. He did have some diarrhea when he came into the emergency room. Stool studies so far have been negative. Currently, the diarrhea has resolved and so have abdominal symptoms. He may have a component of gastroesophageal reflux disease that is causing the epigastric pain and atypical chest pain, currently on PPIs, Protonix 40 mg daily, and doing well. RECOMMENDATIONS: 1. Continue with Protonix 40 mg daily. 2. Briefly educate about antireflux measures. 3. No need for any endoscopic workup. 4. Since his symptoms are better, he can be discharged home with an outpatient followup as needed based on his symptoms. Thank you for this consultation. MARELY
[2016-10-03 11:48] LABS: Glucose,Whole Blood 220 mg/dL (75-99)
[2016-10-03 12:19] VITALS: RESP 18
[2016-10-03 16:11] VITALS: BP 121/71; PULSE 70; TEMP 98.6
--- NOTE | 2016-10-03 16:20 | P.DS ---
Providers Date of admission: 10/01/16 13:44 Expected date of discharge: 10/03/16 Attending physician: Gumaro Gallagher Consults: 10/01/16 13:44 Consult Physician Urgent Consulting Provider: Praveen Mcleod Consult Reason/Comments: cp Do you want consulting provider notified?: Yes 10/02/16 10:21 Consult Physician Routine Consulting Provider: Surya Mendoza Consult Reason/Comments: diarrhea, possible parasite Do you want consulting provider notified?: Yes Primary care physician: Sana Wills Hospital Course: Diagnoses on discharge: 1. Chest pain: Troponins negative 2 sets. EKG showing normal sinus rhythm. Chest x-ray negative. Patient on IV heparin. Cardiology consulted. Previous stress test May 2015 which was negative 2. Diarrhea with possible parasites. Stool studies ordered. Patient will be started on Flagyl 500 mg 3 times a day. GI service consulted. 3. History of coronary artery disease with previous coronary bypass graft in August 2012. Also history of cardiac stents 4. Essential hypertension blood pressure stable. Resume home blood pressure medications 5. Hyperlipidemia continue statin 6. Diabetes mellitus type 2: Hold metformin and hospitalization. We'll add sliding scale coverage. Continue trigger gentle 5 mg daily and Amaryl 2 mg with breakfast 7. Hypomagnesemia: Magnesium level 1.5. Recheck magnesium level today if remains low we'll replace Hospital course: This is a 55-year-old male, patient of Dr. Wills. He has a known past medical history of hypertension, hyperlipidemia, diabetes mellitus, anxiety, coronary artery disease with previous CABG in 2012 and history of cardiac stents. Patient reports having chest pain on the right side of his chest and in the back started yesterday at 9:00 in the morning at work. He went home from work and was still having the chest pain so he presented to the emergency room for further evaluation and treatment. Patient also is having some a pheresis and nausea. He denies any shortness of breath. He does report that the pain didn' t move up into the right side of his neck. His last stress test was in May 2015 which was negative. Chest x-rays for today is negative EKG had shown a normal sinus rhythm and troponins are negative 2. Patient started on IV heparin in the emergency room and cardiology was consulted. Patient also reports having diarrhea that has been ongoing for the last couple a days. Nostrils been watery no blood reported. He is concerned of possible parasites. He was treated for possible parasites about [address] Wills's office. He is unsure of exact medication that was given. Stool studies have been ordered and he'll be started on Flagyl 500 mg 3 times a day. GI service will be consulted. His last colonoscopy was about 3 years ago and he reports having some polyps removed. D-dimer was 0.25. Hemoglobin A1c is 7.6. Patient was evaluated by Cardiology no intervention recommended at this time. His chest pain has resolved. He was also evaluated by Dr Annemarie Jefferson stools studies done so far all are negative. diarrhea resolved possibly related to viral gastroenteritis. Patient was discharged home on 10/03/2016 \Follow-up with Dr Wills within one week Patient Condition at Discharge: Undetermined Plan - Discharge Summary New Discharge Prescriptions: Continue Glimepiride [Amaryl] 2 mg PO AC-BRKFST Cetirizine HCl [Zyrtec] 10 mg PO DAILY Pantoprazole Sodium 40 mg PO BID PRN PRN Reason: GERD sitaGLIPtin PHOS/metFORMIN HCL [Janumet 50-1,000 mg Tablet] 1 tab PO BID Lisinopril [Zestril] 20 mg PO BID Furosemide [Lasix] 40 mg PO DAILY Potassium Chloride [Klor-Con 10] 10 meq PO DAILY Isosorbide Mononitrate ER [Imdur] 30 mg PO DAILY Ascorbic Acid [Vitamin C] 500 mg PO DAILY Cholecalciferol [Vitamin D3] 1,000 unit PO DAILY Cinnamon Bark [Cinnamon] 2,000 mg PO DAILY Garlic 2 tab PO DAILY Cyanocobalamin [Vitamin B-12] 1,000 mcg PO DAILY Pravastatin Sodium [Pravachol] 80 mg PO HS Metoprolol Tartrate [Lopressor] 100 mg PO BID Multivit-Min/FA/Lycopen/Lutein [Centrum Silver Tablet] 1 tab PO DAILY [place]-3 Fatty Acids/Fish Oil [Fish Oil 1,000 mg Softgel] 1 cap PO DAILY Aspirin EC [Ecotrin Low Dose] 81 mg PO DAILY #30 tablet.dr Discharge Medication List Cetirizine HCl [Zyrtec] 10 mg PO DAILY 09/24/13 [History] Furosemide [Lasix] 40 mg PO DAILY 09/24/13 [History] Glimepiride [Amaryl] 2 mg PO AC-BRKFST 09/24/13 [History] Lisinopril [Zestril] 20 mg PO BID 09/24/13 [History] Pantoprazole Sodium 40 mg PO BID PRN 09/24/13 [History] Potassium Chloride [Klor-Con 10] 10 meq PO DAILY 09/24/13 [History] sitaGLIPtin PHOS/metFORMIN HCL [Janumet 50-1,000 mg Tablet] 1 tab PO BID [History] Ascorbic Acid [Vitamin C] 500 mg PO DAILY 03/19/14 [History] Cholecalciferol [Vitamin D3] 1,000 unit PO DAILY 03/19/14 [History] Isosorbide Mononitrate ER [Imdur] 30 mg PO DAILY 03/19/14 [History] Cinnamon Bark [Cinnamon] 2,000 mg PO DAILY 05/30/15 [History] Cyanocobalamin [Vitamin B-12] 1,000 mcg PO DAILY 05/30/15 [History] Garlic 2 tab PO DAILY 05/30/15 [History] Pravastatin Sodium [Pravachol] 80 mg PO HS 05/30/15 [History] Metoprolol Tartrate [Lopressor] 100 mg PO BID 01/08/16 [History] Multivit-Min/FA/Lycopen/Lutein [Centrum Silver Tablet] 1 tab PO DAILY 01/08/16 [ History] [place]-3 Fatty Acids/Fish Oil [Fish Oil 1,000 mg Softgel] 1 cap PO DAILY [History] Aspirin EC [Ecotrin Low Dose] 81 mg PO DAILY #30 tablet. 01/09/16 [Rx] Follow up Appointment(s)/Referral(s): Sana Wills MD [Primary Care Provider] - 1-2 days Brian Jefferson MD [STAFF PHYSICIAN] - 1 Week Patient Instructions/Handouts: Chest Pain (ED)
== END 2016-10-03 16:34 | disposition home or self-care (01) ==
LOC: EC 11:22 → 3OBS 13:44
PROVIDERS: ADMIT Internal Medicine; ATTEND Internal Medicine
DX: R07.89 Other chest pain (principal); R19.7 Diarrhea, unspecified; I10 Essential (primary) hypertension; I25.10 Atherosclerotic heart disease of native coronary artery without angina pectoris; E78.5 Hyperlipidemia, unspecified; E11.9 Type 2 diabetes mellitus without complications; M10.9 Gout, unspecified; F41.9 Anxiety disorder, unspecified; E83.42 Hypomagnesemia; R11.2 Nausea with vomiting, unspecified; R10.13 Epigastric pain; Z95.1 Presence of aortocoronary bypass graft; Z95.5 Presence of coronary angioplasty implant and graft; Z79.84 Long term (current) use of oral hypoglycemic drugs; Z79.899 Other long term (current) drug therapy; Z79.82 Long term (current) use of aspirin; Z82.49 Family history of ischemic heart disease and other diseases of the circulatory system; Z86.010 Personal history of colon polyps
CPT/HCPCS: 96365; 96366 ×2; 96376 ×2; 99291; 36415; 94760; 93005; 85379; 80061; 80053 ×3; 83036 ×2; 82550 ×2; 82553 ×2; 83690; 83735 ×2; 84484 ×2; 85025 ×3; 85610; 85730 ×2; 87045; 87329; 87328; 87077; 87186; 87046; 71020; 74020; G0378 ×3; J1644 ×3

== ENCOUNTER → 2016-12-12 | Outpatient (CLI) | payer BC ==
[2016-12-12 07:58] LABS: ALT 34 U/L (21-72); AST 16 U/L (17-59); Alkaline Phosphatase 58 U/L (38-126); Anion Gap 9 mmol/L; Blood Urea Nitrogen 22 mg/dL (9-20); Carbon Dioxide 27 mmol/L (22-30); Chloride 104 mmol/L (98-107); Cholesterol 155 mg/dL (<200); Glucose 196 mg/dL (74-99); HDL Cholesterol 35 mg/dL (40-60); Non-African American GFR(MDRD) >60 (>60 ml/min/1.73 sqM); Potassium 4.8 mmol/L (3.5-5.1); Sodium 140 mmol/L (137-145); Total Bilirubin 0.4 mg/dL (0.2-1.3); Total Protein 6.9 g/dL (6.3-8.2)
[2016-12-12 13:56] LABS: Hemoglobin A1C 6.8 % (4.2-6.1)
== END | disposition home or self-care (01) ==
LOC: LABWHC1 07:04
PROVIDERS: ATTEND Family Medicine
DX: E78.00 Pure hypercholesterolemia, unspecified (principal); E11.9 Type 2 diabetes mellitus without complications; I10 Essential (primary) hypertension; R60.1 Generalized edema
CPT/HCPCS: 36415; 80053; 80061; 83036; 84443

== ENCOUNTER → 2018-02-18 | Outpatient (CLI) | payer BC ==
--- NOTE | 2018-02-18 15:58 | XR ---
EXAMINATION TYPE: XR chest 2V DATE OF EXAM: 02/18/2018 COMPARISON: 10/01/2016 TECHNIQUE: PA and lateral views submitted. HISTORY: Pain FINDINGS: Subsegmental changes right lung base. No overt failure or pneumothorax.. Postsurgical changes are no arjun. No overt failure. Arthropathy of the shoulders. Hypertrophic and degenerative changes of the spi ne. IMPRESSION: 1. A definite lung nodules not seen by standard chest x-ray. If there is concern for a lung nodule re commend CT of the chest to basilar atelectasis favored over infiltrate..
[2018-02-18 16:03] LABS: Blood Urea Nitrogen 21 mg/dL (9-20)
--- NOTE | 2018-02-22 12:37 | CT ---
EXAMINATION TYPE: CT chest w con DATE OF EXAM: 02/18/2018 COMPARISON: 09/04/2012 HISTORY: solitary pulmonary nodule CT DLP: 710 mGycm Automated exposure control for dose reduction was used. CONTRAST: CT scan of the chest is performed with IV Contrast, patient injected with 100 mL of Isovue 300. FINDINGS: LUNGS: The lungs are grossly clear, there is no concerning parenchymal mass or nodule identified. T here is no pleural effusion or pneumothorax seen. The tracheobronchial tree is patent. Subsegmental changes are compatible with atelectasis. MEDIASTINUM: There is no pathologic adenopathy. Heart is enlarged and there is coronary artery calcif ication. Tiny hiatal hernia noted. There is tracheal ectasia. Sternotomy wires are noted postsurgical changes. No pathologic adenopathy is seen. Hiatal hernia noted. Aorta: Measures 4 cm within the proximal aortic compatible with mild aneurysmal dilation slightly increased from the prior exam of 2012 were measured 3.8 cm. OTHER: The gynecomastia noted. Postcholecystectomy changes are seen and there are left-sided parapel carlo cortical renal cysts. Hypertrophic and degenerative changes of the spine noted. Sternotomy change is seen. IMPRESSION: 1. No pulmonary nodule identified. 2. subsegmental areas of consolidation most typical of chronic atelectasis or scarring. 3. Thoracic aorta measures 4 cm compatible with borderline aneurysmal dilation slightly increased fro m the exam of 2013 where it measured 3.8 cm.
== END | disposition home or self-care (01) ==
LOC: RADCTMAIN 15:17
PROVIDERS: ATTEND Family Medicine
DX: R91.1 Solitary pulmonary nodule (principal); R91.8 Other nonspecific abnormal finding of lung field
CPT/HCPCS: 82565; 84520; 71046; 71260; 36415; Q9967

== ENCOUNTER 2020-03-02 12:18 | Inpatient (IN) | payer BC, OTHER ==
[2020-03-02] MEDS ORDERED: NITROGLYCERIN SL TABS 0.4 MG TAB SUBLINGUAL STA (12:59)
[2020-03-02] MEDS ORDERED: NITROGLYCERIN OINT 1 INCH/GM PACKET TOPICAL STA (12:59)
[2020-03-02] MEDS ORDERED: ASPIRIN 81 MG PO STA (12:59)
[2020-03-02 13:08] LABS: Basophils # (A) 0.1 k/uL (0-0.2); Basophils % (A) 1 %; Eosinophils # (A) 0.1 k/uL (0-0.7); Eosinophils % (A) 1 %; HCT 49.9 % (39.0-53.0); HGB 16.9 gm/dL (13.0-17.5); Lymphocytes # (A) 0.9 k/uL (1.0-4.8); Lymphocytes % (A) 10 %; MCH 31.2 pg (25.0-35.0); MCHC 33.9 g/dL (31.0-37.0); MCV 91.9 fL (80.0-100.0); Mean Platelet Volume 7.3; Monocytes # (A) 0.3 k/uL (0-1.0); Monocytes % (A) 3 %; Neutrophils # (A) 7.9 k/uL (1.3-7.7); Neutrophils % (A) 84 %; Platelet Count 176 k/uL (150-450); RBC 5.43 m/uL (4.30-5.90); WBC 9.4 k/uL (3.8-10.6)
[2020-03-02 13:14] LABS: Albumin 4.3 g/dL (3.5-5.0); Calcium 10.3 mg/dL (8.4-10.2); Magnesium 1.8 mg/dL (1.6-2.3); Potassium 4.5 mmol/L (3.5-5.1); Total Bilirubin 0.6 mg/dL (0.2-1.3); Total Protein 7.3 g/dL (6.3-8.2)
--- NOTE | 2020-03-02 13:16 | ED ---
General Adult HPI - General Chief complaint: Chest Pain Stated complaint: Chest pain Time Seen by Provider: 03/02/20 12:40 Source: patient, RN notes reviewed, old records reviewed Mode of arrival: ambulatory Limitations: no limitations - History of Present Illness Initial comments: This is a 59-year-old male who presents emergency department with past medical history significant for bypass surgery as well as coronary artery stents. Patient states about 9:00 this morning started having chest pain he was mildly short of breath did not have any pain radiating to his arms or neck or back. Patient states that he took 2 nitroglycerin and aspirin. Patient states it did reduce his pain but did not take his pain completely away. He states he is currently having some pain. Patient denies any shortness of breath currently patient denies any diaphoretic episodes patient denies any nausea or vomiting. - Related Data Home Medications Medication Instructions Recorded Confirmed Cetirizine HCl [Zyrtec] 10 mg PO DAILY 09/24/13 03/02/20 Furosemide [Lasix] 20 mg PO DAILY 09/24/13 03/02/20 Pantoprazole Sodium 40 mg PO DAILY 09/24/13 03/02/20 Potassium Chloride [Klor-Con 10] 10 meq PO DAILY 09/24/13 03/02/20 lisinopriL [Zestril] 20 mg PO BID 09/24/13 03/02/20 sitaGLIPtin PHOS/metFORMIN HCL 1 tab PO BID 09/24/13 03/02/20 [Janumet 50-1,000 mg Tablet] Ascorbic Acid [Vitamin C] 500 mg PO DAILY 03/19/14 03/02/20 Cholecalciferol [Vitamin D3 (25 1,000 unit PO DAILY 03/19/14 03/02/20 Mcg = 1000 Iu)] Isosorbide Mononitrate ER [Imdur] 30 mg PO DAILY 03/19/14 03/02/20 Cinnamon Bark [Cinnamon] 2,000 mg PO DAILY 05/30/15 03/02/20 Cyanocobalamin [Vitamin B-12] 1,000 mcg PO DAILY 05/30/15 03/02/20 Garlic 2 tab PO DAILY 05/30/15 03/02/20 Pravastatin Sodium [Pravachol] 80 mg PO HS 05/30/15 03/02/20 Metoprolol Tartrate [Lopressor] 100 mg PO BID 01/08/16 03/02/20 Multivit-Min/FA/Lycopen/Lutein 1 tab PO DAILY 01/08/16 03/02/20 [Centrum Silver Tablet] [place]-3 Fatty Acids/Fish Oil [Fish 1 cap PO DAILY 01/08/16 03/02/20 Oil 1,000 mg Softgel] Empagliflozin [Jardiance] 25 mg PO DAILY 03/02/20 03/02/20 Essence 500 mg PO DAILY 03/02/20 03/02/20 Glimepiride [Amaryl] 4 mg PO AC-BRKFST 03/02/20 03/02/20 Nitroglycerin Sl Tabs [Nitrostat] 0.4 mg SUBLINGUAL Q5M PRN 03/02/20 03/02/20 Previous Rx's Medication Instructions Recorded Aspirin EC [Ecotrin Low Dose] 81 mg PO DAILY #30 tablet. 01/09/16 Allergies Allergy/AdvReac Type Severity Reaction Status Date / Time No Known Allergies Allergy Verified 03/02/20 14:47 Review of Systems ROS Statement: Those systems with pertinent positive or pertinent negative responses have been documented in the HPI. ROS Other: All systems not noted in ROS Statement are negative. Past Medical History Past Medical History: Chest Pain / Angina, Diabetes Mellitus, Hyperlipidemia, Hypertension Additional Past Medical History / Comment(s): gout, stress test History of Any Multi-Drug Resistant Organisms: None Reported Past Surgical History: Cholecystectomy, Coronary Bypass/CABG, Heart Catheterization With Stent Additional Past Surgical History / Comment(s): QUAD CABG AUGUST 2012 AT [facility], HEART CATH WITH STENTS X 2 A FEW YEARS PRIOR TO CABG AT [place],COLO NOSOCPY/POLYPECTOMY(BENIGN) Past Anesthesia/Blood Transfusion Reactions: No Reported Reaction Additional Past Anesthesia/Blood Transfusion Reaction / Comment(s): blood transfusion w/ cabg-no reacation Date of Last Stent Placement:: unk Past Psychological History: No Psychological Hx Reported Smoking Status: Never smoker Past Alcohol Use History: None Reported Past Drug Use History: None Reported - Past Family History Father History Unknown: Yes Family Medical History: Myocardial Infarction ([place]), Rheumatoid Arthritis ([place]) Additional Family Medical History / Comment(s): at 46 from [place], rheumatic fever when younger Mother Family Medical History: Dementia, Diabetes Mellitus General Exam - General Exam Comments Initial Comments: GENERAL: Patient is well-developed and well-nourished. Patient is nontoxic and well- hydrated and is in mild distress. ENT: Neck is soft and supple. No significant lymphadenopathy is noted. Oropharynx is clear. Moist mucous membranes. Neck has full range of motion without elic iting any pain. EYES: The sclera were anicteric and conjunctiva were pink and moist. Extraocular movements were intact and pupils were equal round and reactive to light. Eyelids were unremarkable. PULMONARY: Unlabored respirations. Good breath sounds bilaterally. No audible rales rhonchi or wheezing was noted. CARDIOVASCULAR: There is a regular rate and rhythm without any murmurs gallops or rubs. ABDOMEN: Soft and nontender with normal bowel sounds. SKIN: Skin is clear with no lesions or rashes and otherwise unremarkable. NEUROLOGIC: Patient is alert and oriented x3. Cranial nerves II through XII are grossly intact. Motor and sensory are also intact. Normal speech, volume and content. Symmetrical smile. MUSCULOSKELETAL: Normal extremities with adequate strength and full range of motion. LYMPHATICS: No significant lymphadenopathy is noted PSYCHIATRIC: Normal psychiatric evaluation. Limitations: no limitations Course Vital Signs 03/02/20 03/02/20 03/02/20 12:37 13:00 13:30 Temperature 98.6 F Pulse Rate 80 79 39 L Respiratory 20 16 26 H Rate Blood Pressure 126/86 136/91 111/65 O2 Sat by Pulse 97 98 62 L Oximetry 03/02/20 03/02/20 03/02/20 13:52 14:00 15:00 Temperature Pulse Rate 76 79 71 Respiratory 20 15 16 Rate Blood Pressure 117/81 117/81 117/81 O2 Sat by Pulse 100 99 98 Oximetry Medical Decision Making - Medical Decision Making EKG shows normal sinus rhythm at 79 bpm DE interval 164 QRS is 100 QT interval 384 QTC is 440. Patient's EKG shows slight ST segment elevation in II, III, and F aVF. I spoke with Dr. Jiménez came down within 5 minutes and saw the patient as well as EKG. Chest x-ray shows no acute abnormality. Patient's troponin came back mildly elevated I started the patient on heparin I made Dr. Jiménez aware. I spoke with Dr. Guerrero he agreed to admit the patient admitted the patient wrote admitting orders I consult cardiology. I continued heparin and aspirin like a soft floor. - Lab Data Result diagrams: 03/02/20 13:01 03/02/20 13:01 Lab Results 03/02/20 03/02/20 03/02/20 Range/Units 13: 13: 13:01 WBC 9.4 (3.8-10.6) k/uL RBC 5.43 (4.30-5.90) m/uL Hgb 16.9 (13.0-17.5) gm/dL Hct 49.9 (39.0-53.0) % MCV 91.9 (80.0-100.0) fL MCH 31.2 (25.0-35.0) pg MCHC 33.9 (31.0-37.0) g/dL RDW 13.0 (11.5-15.5) % Plt Count 176 (150-450) k/uL MPV 7.3 Neutrophils % 84 % Lymphocytes % 10 % Monocytes % 3 % Eosinophils % 1 % Basophils % 1 % Neutrophils # 7.9 H (1.3-7.7) k/uL Lymphocytes # 0.9 L (1.0-4.8) k/uL Monocytes # 0.3 (0-1.0) k/uL Eosinophils # 0.1 (0-0.7) k/uL Basophils # 0.1 (0-0.2) k/uL PT 10.0 (9.0-12.0) sec INR 1.0 (<1.2) APTT 22.2 (22.0-30.0) sec Sodium 137 (137-145) mmol/L Potassium 4.5 (3.5-5.1) mmol/L Chloride 105 (98-107) mmol/L Carbon Dioxide 24 (22-30) mmol/L Anion Gap 8 mmol/L BUN 28 H (9-20) mg/dL Creatinine 1.04 (0.66-1.25) mg/dL Est GFR (CKD-EPI)AfAm 90 (>60 ml/min/1.73 sqM) Est GFR (CKD-EPI)NonAf 78 (>60 ml/min/1.73 sqM) Glucose 270 H (74-99) mg/dL Calcium 10.3 H (8.4-10.2) mg/dL Magnesium 1.8 (1.6-2.3) mg/dL Total Bilirubin 0.6 (0.2-1.3) mg/dL AST 47 (17-59) U/L ALT 28 (4-49) U/L Alkaline Phosphatase 71 (38-126) U/L Troponin I (0.000-0.034) ng/mL Total Protein 7.3 (6.3-8.2) g/dL Albumin 4.3 (3.5-5.0) g/dL 03/02/20 Range/Units 13:01 WBC (3.8-10.6) k/uL RBC (4.30-5.90) m/uL Hgb (13.0-17.5) gm/dL Hct (39.0-53.0) % MCV (80.0-100.0) fL MCH (25.0-35.0) pg MCHC (31.0-37.0) g/dL RDW (11.5-15.5) % Plt Count (150-450) k/uL MPV Neutrophils % % Lymphocytes % % Monocytes % % Eosinophils % % Basophils % % Neutrophils # (1.3-7.7) k/uL Lymphocytes # (1.0-4.8) k/uL Monocytes # (0-1.0) k/uL Eosinophils # (0-0.7) k/uL Basophils # (0-0.2) k/uL PT (9.0-12.0) sec INR (<1.2) APTT (22.0-30.0) sec Sodium (137-145) mmol/L Potassium (3.5-5.1) mmol/L Chloride (98-107) mmol/L Carbon Dioxide (22-30) mmol/L Anion Gap mmol/L BUN (9-20) mg/dL Creatinine (0.66-1.25) mg/dL Est GFR (CKD-EPI)AfAm (>60 ml/min/1.73 sqM) Est GFR (CKD-EPI)NonAf (>60 ml/min/1.73 sqM) Glucose (74-99) mg/dL Calcium (8.4-10.2) mg/dL Magnesium (1.6-2.3) mg/dL Total Bilirubin (0.2-1.3) mg/dL AST (17-59) U/L ALT (4-49) U/L Alkaline Phosphatase (38-126) U/L Troponin I 0.882 H* (0.000-0.034) ng/mL Total Protein (6.3-8.2) g/dL Albumin (3.5-5.0) g/dL Critical Care Time Critical Care Time: Yes Total Critical Care Time: 35 Disposition Clinical Impression: Acute non-ST elevation myocardial infarction (NSTEMI) Disposition: ADMITTED IP TO THIS HOSP Referrals: Sana Wills MD [Primary Care Provider] - 1-2 days Time of Disposition: 15:33
[2020-03-02 13:17] LABS: Partial Thromboplastin Time 22.2 sec (22.0-30.0)
[2020-03-02] MEDS ORDERED: HEPARIN SODIUM,PORCINE 5,000 UNIT/ML 1 ML VIAL IV ONE (13:17)
--- NOTE | 2020-03-02 13:25 | XR ---
EXAMINATION TYPE: XR chest 2V DATE OF EXAM: 03/02/2020 COMPARISON: 02/18/2018 HISTORY: 59-year-old male with chest pain TECHNIQUE: PA and lateral views FINDINGS: The cardiomediastinal silhouette, aorta, and pulmonary vasculature are within normal limits. Focal pa tchy right infrahilar opacity is new. No other consolidation or pleural effusion. Mild to moderate en dplate spondylosis midthoracic spine. IMPRESSION: Early patchy right infrahilar infiltrate. Correlate for symptoms of pneumonia.
--- NOTE | 2020-03-02 13:45 | P.HPIM ---
History of Present Illness Patient is a pleasant 59-year-old male came in with complaints of chest pressure-like sensation moderate severity started on a name today morning with some shortness of breath and diaphoresis lasted for a few hours to drive to nitroglycerin another nitroglycerin was given in ER with with which his symptoms improved and patient was and he doesn't have any chest pain. Patient denied any fever chills patient just pain is nonproductive not associated with food. Patient had an EKG which had ST depressions in V2 in V1 and mild the less than [address] lead 2. Patient was evaluated by cardiology. They believe patient has non-ST elevation microinfarction patient was started on IV heparin and the Nitropaste on nitroglycerin drip and will be admitted to the hospital patient will eventually need cardiac catheterization. Review of Systems REVIEW OF SYSTEMS: CONSTITUTIONAL: No fever, no malaise, no fatigue. HEENT: No recent visual problems or hearing problems. Denied any sore throat. CARDIOVASCULAR: No orthopnea, PND, no palpitations, no syncope. PULMONARY: No shortness of breath, no cough, no hemoptysis. GASTROINTESTINAL: No diarrhea, no nausea, no vomiting, no abdominal pain. NEUROLOGICAL: No headaches, no weakness, no numbness. HEMATOLOGICAL: Denies any bleeding or petechiae. GENITOURINARY: Denies any burning micturition, frequency, or urgency. MUSCULOSKELETAL/RHEUMATOLOGICAL: Denies any joint pain, swelling, or any muscle pain. ENDOCRINE: Denies any polyuria or polydipsia. The rest of the 14-point review of systems is negative. Past Medical History Past Medical History: Chest Pain / Angina, Diabetes Mellitus, Hyperlipidemia, Hypertension Additional Past Medical History / Comment(s): gout, stress test History of Any Multi-Drug Resistant Organisms: None Reported Past Surgical History: Cholecystectomy, Coronary Bypass/CABG, Heart Catheteriz ation With Stent Additional Past Surgical History / Comment(s): QUAD CABG AUGUST 2012 AT [facility], HEART CATH WITH STENTS X 2 A FEW YEARS PRIOR TO CABG AT [place],COLONOSOCPY/POLYPE CTOMY(BENIGN) Past Anesthesia/Blood Transfusion Reactions: No Reported Reaction Additional Past Anesthesia/Blood Transfusion Reaction / Comment(s): blood transfusion w/ cabg-no reacation Date of Last Stent Placement:: unk Past Psychological History: No Psychological Hx Reported Smoking Status: Never smoker Past Alcohol Use History: None Reported Past Drug Use History: None Reported - Past Family History Father History Unknown: Yes Family Medical History: Myocardial Infarction ([place]), Rheumatoid Arthritis (RA) Additional Family Medical History / Comment(s): at 46 from mi, rheumatic fever when younger Mother Family Medical History: Dementia, Diabetes Mellitus Medications and Allergies Home Medications Medication Instructions Recorded Confirmed Type Cetirizine HCl [Zyrtec] 10 mg PO DAILY 09/24/13 10/01/16 History Furosemide [Lasix] 40 mg PO DAILY 09/24/13 10/01/16 History Glimepiride [Amaryl] 2 mg PO AC-BRKFST 09/24/13 10/01/16 History Pantoprazole Sodium 40 mg PO BID PRN 09/24/13 10/01/16 History Potassium Chloride [Klor-Con 10] 10 meq PO DAILY 09/24/13 10/01/16 History lisinopriL [Zestril] 20 mg PO BID 09/24/13 10/01/16 History sitaGLIPtin PHOS/metFORMIN HCL 1 tab PO BID 09/24/13 10/01/16 History [Janumet 50-1,000 mg Tablet] Ascorbic Acid [Vitamin C] 500 mg PO DAILY 03/19/14 10/01/16 History Cholecalciferol [Vitamin D3 (25 1,000 unit PO DAILY 03/19/14 10/01/16 History Mcg = 1000 Iu)] Isosorbide Mononitrate ER [Imdur] 30 mg PO DAILY 03/19/14 10/01/16 History Cinnamon Bark [Cinnamon] 2,000 mg PO DAILY 05/30/15 10/01/16 History Cyanocobalamin [Vitamin B-12] 1,000 mcg PO DAILY 05/30/15 10/01/16 History Garlic 2 tab PO DAILY 05/30/15 10/01/16 History Pravastatin Sodium [Pravachol] 80 mg PO HS 05/30/15 10/01/16 History Metoprolol Tartrate [Lopressor] 100 mg PO BID 01/08/16 10/01/16 History Multivit-Min/FA/Lycopen/Lutein 1 tab PO DAILY 01/08/16 10/01/16 History [Centrum Silver Tablet] [place]-3 Fatty Acids/Fish Oil [Fish 1 cap PO DAILY 01/08/16 10/01/16 History Oil 1,000 mg Softgel] Aspirin EC [Ecotrin Low Dose] 81 mg PO DAILY #30 tablet. 01/09/16 10/01/16 Rx Allergies Allergy/AdvReac Type Severity Reaction Status Date / Time No Known Allergies Allergy Verified 03/02/20 12:38 Physical Exam Vitals: Vital Signs Temp Pulse Resp BP Pulse Ox 03/02/20 13:30 39 L 26 H 111/65 62 L 03/02/20 12:37 98.6 F 80 20 126/86 97 Intake and Output 03/01/20 03/02/20 03/02/20 22:59 06:59 14:59 Other: Weight 103.419 kg PHYSICAL EXAMINATION: GENERAL: The patient is alert and oriented x3, not in any acute distress. Well developed, well nourished. HEENT: Pupils are round and equally reacting to light. EOMI. No scleral icterus. No conjunctival pallor. Normocephalic, atraumatic. No pharyngeal erythema. No thyromegaly. CARDIOVASCULAR: S1 and S2 present. No murmurs, rubs, or gallops. PULMONARY: Chest is clear to auscultation, no wheezing or crackles. ABDOMEN: Soft, nontender, nondistended, normoactive bowel sounds. No palpable organomegaly. MUSCULOSKELETAL: No joint swelling or deformity. EXTREMITIES: No cyanosis, clubbing, or pedal edema. NEUROLOGICAL: Gross neurological examination did not reveal any focal deficits. SKIN: No rashes. Results CBC & Chem 7: 03/02/20 13:01 03/02/20 13:01 Labs: Abnormal Lab Results - Last 24 Hours (Table) 03/02/20 03/02/20 03/02/20 Range/Units 13:01 13: 13:01 Neutrophils # 7.9 H (1.3-7.7) k/uL Lymphocytes # 0.9 L (1.0-4.8) k/uL BUN 28 H (9-20) mg/dL Glucose 270 H (74-99) mg/dL Calcium 10.3 H (8.4-10.2) mg/dL Troponin I 0.882 H* (0.000-0.034) ng/mL Assessment and Plan Plan: -Acute non-ST elevation microinfarction patient had a first troponin is mildly elevated and we'll repeat the a 2more sets of troponins. Patient will be started on can you done IV heparin continue with nitro. Patient is complaining of for a bit of headache secondary to nitro -Coronary artery disease with history of CABG in the past -Type 2 diabetes mellitus -Hypertension -Hyperlipidemia For above-mentioned chronic medical problems once medications were verified will resume on appropriate home medications
[2020-03-02] MEDS: HEPARIN SOD,PORK IN 0.45% NACL 25,000 UNIT in 0.45% NACL 1 250ML.BAG IV SCH (13:46)
[2020-03-02] MEDS ORDERED: NITROGLYCERIN SL TABS 0.4 MG TAB SUBLINGUAL PRN (15:35)
[2020-03-02] MEDS: NITROGLYCERIN OINT 1 INCH/GM PACKET TOPICAL SCH ×2 (18:12→23:52)
[2020-03-02] MEDS ORDERED: ACETAMINOPHEN TAB 325 MG TAB PO PRN (20:16)
[2020-03-02] MEDS: INSULIN ASPART (NovoLOG) 100 UNIT/ML VIAL SQ SCH (21:27)
[2020-03-03 06:09] LABS: Cholesterol 197 mg/dL (<200); HDL Cholesterol 32 mg/dL (40-60); LDL Cholesterol,Calculated 114 mg/dL (0-99); Triglycerides 255 mg/dL (<150)
[2020-03-03] MEDS: NITROGLYCERIN OINT 1 INCH/GM PACKET TOPICAL SCH (06:10)
[2020-03-03] MEDS: INSULIN ASPART (NovoLOG) 100 UNIT/ML VIAL SQ SCH ×4 (06:21→20:30)
[2020-03-03] MEDS: FUROSEMIDE 20 MG TAB PO SCH (08:31)
[2020-03-03] MEDS: lisinopriL 20 MG TAB PO SCH ×2 (08:31→20:31)
[2020-03-03] MEDS: METOPROLOL TARTRATE 50 MG TAB PO SCH ×2 (08:32→20:31)
[2020-03-03] MEDS: ASPIRIN 81 MG PO SCH (08:32)
[2020-03-03] MEDS ORDERED: SODIUM CHLORIDE 0.9% 1,000 ML in EMPTY BAG 1 BAG IV ONE (08:46)
[2020-03-03] MEDS ORDERED: ALPRAZolam 0.25 MG TAB PO PRN (08:46)
[2020-03-03] MEDS ORDERED: ALPRAZolam 0.5 MG TAB PO PRN (08:46)
[2020-03-03] MEDS ORDERED: NITROGLYCERIN SL TABS 0.4 MG TAB SUBLINGUAL PRN ×2 (08:46→11:41)
[2020-03-03] MEDS ORDERED: ASPIRIN 325 MG TAB PO STA (08:46)
[2020-03-03] MEDS ORDERED: ATORVASTATIN 80 MG TAB PO STA (08:46)
--- NOTE | 2020-03-03 08:54 | P.PN ---
Subjective Patient is admitted for non-ST elevation myocardial infarction. Patient troponin is around the 22 patient will undergo cardiac catheterization today presently on IV heparin Constitutional: Denied any fatigue denied any fever. Cardio vascular: denied any chest pain, palpitations Gastrointestinal denied any nausea vomiting Pulmonary: Denied any shortness of breath cough Neurologic denied any new focal deficits All inpatient medications were reviewed and appropriate changes in these medications as dictated in the interval history and assessment and plan. Objective - Vital Signs Vital signs: Vital Signs Temp 98.8 F 03/03/20 08:00 Pulse 113 H 03/03/20 08:00 Resp 18 03/03/20 08:00 BP 121/83 03/03/20 08:00 Pulse Ox 96 03/03/20 08:00 Intake & Output 03/02/20 03/03/20 03/03/20 18:59 06:59 18:59 Intake Total 340.333 97.61 Balance 340.333 97.61 Weight 103.419 kg 116.5 kg Intake: Intake, IV Titration 100.333 97.61 Amount Heparin Sod,Pork in 0.45% 100.333 97.61 NaCl 25,000 unit In 0.45 % NaCl 1 250ml.bag @ 9. 669 UNITS/KG/HR 10 mls/hr IV .Q24H [id number] Rx#: [id number] Oral 240 Other: # Voids 1 1 1 - Exam PHYSICAL EXAMINATION: GENERAL: The patient is alert and oriented x3, not in any acute distress. Well developed, well nourished. HEENT: Pupils are round and equally reacting to light. EOMI. No scleral icterus. No conjunctival pallor. Normocephalic, atraumatic. No pharyngeal erythema. No thyromegaly. CARDIOVASCULAR: S1 and S2 present. No murmurs, rubs, or gallops. PULMONARY: Chest is clear to auscultation, no wheezing or crackles. ABDOMEN: Soft, nontender, nondistended, normoactive bowel sounds. No palpable organomegaly. MUSCULOSKELETAL: No joint swelling or deformity. EXTREMITIES: No cyanosis, clubbing, or pedal edema. NEUROLOGICAL: Gross neurological examination did not reveal any focal deficits. SKIN: No rashes. - Labs CBC & Chem 7: 03/02/20 13:01 03/02/20 13:01 Labs: Abnormal Lab Results - Last 24 Hours (Table) 03/02/20 03/02/20 03/02/20 Range/Units 13:01 13:01 13:01 Neutrophils # 7.9 H (1.3-7.7) k/uL Lymphocytes # 0.9 L (1.0-4.8) k/uL APTT (22.0-30.0) sec BUN 28 H (9-20) mg/dL Glucose 270 H (74-99) mg/dL Calcium 10.3 H (8.4-10.2) mg/dL Troponin I 0.882 H* (0.000-0.034) ng/mL Triglycerides (<150) mg/dL LDL Cholesterol, Calc (0-99) mg/dL HDL Cholesterol (40-60) mg/dL 03/02/20 03/02/20 03/03/20 Range/Units 17:00 19:40 05:40 Neutrophils # (1.3-7.7) k/uL Lymphocytes # (1.0-4.8) k/uL APTT (22.0-30.0) sec BUN (9-20) mg/dL Glucose (74-99) mg/dL Calcium (8.4-10.2) mg/dL Troponin I 18.500 H* 21.700 H* (0.000-0.034) ng/mL Triglycerides 255 H (<150) mg/dL LDL Cholesterol, Calc 114 H (0-99) mg/dL HDL Cholesterol 32 L (40-60) mg/dL 03/03/20 Range/Units 05:40 Neutrophils # (1.3-7.7) k/uL Lymphocytes # (1.0-4.8) k/uL APTT 38.3 H (22.0-30.0) sec BUN (9-20) mg/dL Glucose (74-99) mg/dL Calcium (8.4-10.2) mg/dL Troponin I (0.000-0.034) ng/mL Triglycerides (<150) mg/dL LDL Cholesterol, Calc (0-99) mg/dL HDL Cholesterol (40-60) mg/dL Assessment and Plan Plan: -Acute non-ST elevation myocardial infarction: Patient will undergo cardiac catheterization today continue with IV heparin and nitro. Patient is on beta blockers and statin as well. -Coronary artery disease with history of CABG in the past -Type 2 diabetes mellitus -Hypertension -Hyperlipidemia
[2020-03-03] MEDS ORDERED: ASPIRIN 325 MG TAB PO SCH (09:00)
[2020-03-03] MEDS ORDERED: IV FLUID CONTINUATION 300 ML IV ONE (09:27)
[2020-03-03] MEDS ORDERED: MIDAZOLAM 2 MG/2 ML VIAL IV ONE (09:27)
[2020-03-03] MEDS ORDERED: fentaNYL (PF) 50 MCG/ML 2 ML AMP IV ONE (09:27)
[2020-03-03] MEDS ORDERED: LIDOCAINE 1% INJ 10MG/ML (20 ML MDV) SQ ONE (09:31)
[2020-03-03 09:35] LABS: Glucose,Whole Blood 141 mg/dL (75-99)
[2020-03-03 09:40] LABS: Glucose,Whole Blood 140 mg/dL (75-99)
[2020-03-03 09:41] LABS: Glucose,Whole Blood 152 mg/dL (75-99)
[2020-03-03] MEDS ORDERED: IOPAMIDOL-370 125ML BTL INJ ONE (09:56)
[2020-03-03] MEDS: NITROGLYCERIN 1000MCG/10ML SYRINGE INTRACORON ONE ×2 (10:50→11:20)
[2020-03-03] MEDS ORDERED: NITROGLYCERIN 1000MCG/10ML SYRINGE INTRACORON ONE (10:50)
[2020-03-03] MEDS ORDERED: CLOPIDOGREL 75 MG TAB ONE (10:55)
[2020-03-03] MEDS ORDERED: CLOPIDOGREL 75 MG TAB PO ONE (10:56)
[2020-03-03] MEDS ORDERED: HEPARIN SODIUM 1,000 UN/ML (10ML VL) ONE (10:57)
[2020-03-03] MEDS: HEPARIN SODIUM 1,000 UN/ML (10ML VL) IV ONE ×2 (10:58→11:09)
--- NOTE | 2020-03-03 11:08 | P.CRDCN ---
History of Present Illness Consult date: 03/03/20 History of present illness: CHIEF COMPLAINT: Chest pain HISTORY OF PRESENT ILLNESS: This is a 59-year-old male with a past medical history significant for hypertension, hyperlipidemia, diabetes mellitus, gout, coronary artery disease with previous CABG. Patient follows in the office with Dr. Jefferson. We have been asked to see the patient in consultation for chest pain. Patient states yesterday around 9 AM he began having chest pain after eating breakfast. He states the pain was in the middle of his chest. He denied feel ing short of breath. Denied nausea. He states he felt diaphoretic and felt like his arms or cold. He states he took 3 aspirin and 2 nitro which helped his pain a little bit. At 11 AM, he was still having chest pain so he came to the emergency room for further evaluation. At the time of examination this morning, the patient is not having any chest pain. Patient does have a history of CABG 4 in 2012. He underwent a cath in 2013 which revealed an occluded graft to the diagonal branch. Echocardiogram completed in 2015 revealed ejection fraction 50-55%. DIAGNOSTICS: EKG reveals sinus mechanism with ST depression in V2, mild ST elevation of inferior leads Chest xray early patchy right infrahilar infiltrate. Laboratory data: WBC 9.4. Hemoglobin 16.9. Platelet count 176. Sodium 137. Potassium 4.5. BUN 28. Creatinine 0.04. Troponin 0.882. 18.500. 21.700. Current home cardiac medications include lisinopril 20 mg twice a day, pravastatin 80 mg daily, metoprolol 100 mg twice a day, Imdur 30 mg daily, Lasix 20 mg daily, aspirin 81 mg daily REVIEW OF SYSTEMS: At the time of my exam: CONSTITUTIONAL: Denies fever or chills. HEENT: Denies blurred vision, vision changes, or eye pain. Denies hemoptysis CARDIOVASCULAR: Denies chest pain, orthopnea, PND or palpitations RESPIRATORY: No shortness of breath. GASTROINTESTINAL: Denies abdominal pain. Denies nausea or vomiting. HEMATOLOGIC: Denies bleeding disorders. GENITOURINARY: Denies any blood in urine. SKIN: Denies pruitis. Denies rash. PHYSICAL EXAM: VITAL SIGNS: Reviewed. GENERAL: Well-developed in no acute distress. HEENT: Head is normocephalic. Pupils are equal, round. Sclerae anicteric. Mucous membranes of the mouth are moist. Neck supple. No JVD or thyromegaly LUNGS: Respirations even and unlabored. Lungs essentially clear to auscultation bilaterally. HEART: Regular rate and rhythm. S1 and S2 heard. ABDOMEN: Soft. Nondistended. Nontender. EXTREMITIES: Normal range of motion. No clubbing or cyanosis. Peripheral pulses intact. No lower extremity edema NEUROLOGIC: Awake and alert. Oriented x 3. ASSESSMENT: Non-ST elevated myocardial infarction Coronary artery disease with previous CABG 4 in 2012, status post cardiac cath in 2013 revealing occluded graft to diagonal branch Hypertension Hyperlipidemia Diabetes mellitus, type II Gout Obesity: BMI 39.1 PLAN: Resume home cardiac medications Continue IV heparin Obtain 2-D echo to assess cardiac structure and function Patient to undergo cardiac cath today with Dr. Jefferson Nurse practitioner note has been reviewed by physician. Signing provider agrees with the documented findings, assessment, and plan of care. Past Medical History Past Medical History: Chest Pain / Angina, Diabetes Mellitus, Hyperlipidemia, Hypertension Additional Past Medical History / Comment(s): gout, stress test History of Any Multi-Drug Resistant Organisms: None Reported Past Surgical History: Cholecystectomy, Coronary Bypass/CABG, Heart Catheterization With Stent Additional Past Surgical History / Comment(s): QUAD CABG AUGUST 2012 AT [facility], HEART CATH WITH STENTS X 2 A FEW YEARS PRIOR TO CABG AT [place],COLONOSOCPY/POLYPECTOMY(BENIGN) Past Anesthesia/Blood Transfusion Reactions: No Reported Reaction Additional Past Anesthesia/Blood Transfusion Reaction / Comment(s): blood transfusion w/ cabg-no reacation Date of Last Stent Placement:: unk Past Psychological History: No Psychological Hx Reported Smoking Status: Never smoker Past Alcohol Use History: None Reported Past Drug Use History: None Reported - Past Family History Father History Unknown: Yes Family Medical History: Myocardial Infarction (MO) Additional Family Medical History / Comment(s): at 46 from mi, rheumatic fever when younger Mother Family Medical History: Dementia, Diabetes Mellitus Medications and Allergies Home Medications Medication Instructions Recorded Confirmed Type Cetirizine HCl [Zyrtec] 10 mg PO DAILY 09/24/13 03/02/20 History Furosemide [Lasix] 20 mg PO DAILY 09/24/13 03/02/20 History Pantoprazole Sodium 40 mg PO DAILY 09/24/13 03/02/20 History Potassium Chloride [Klor-Con 10] 10 meq PO DAILY 09/24/13 03/02/20 History lisinopriL [Zestril] 20 mg PO BID 09/24/13 03/02/20 History sitaGLIPtin PHOS/metFORMIN HCL 1 tab PO BID 09/24/13 03/02/20 History [Janumet 50-1,000 mg Tablet] Ascorbic Acid [Vitamin C] 500 mg PO DAILY 03/19/14 03/02/20 History Cholecalciferol [Vitamin D3 (25 1,000 unit PO DAILY 03/19/14 03/02/20 History Mcg = 1000 Iu)] Isosorbide Mononitrate ER [Imdur] 30 mg PO DAILY 03/19/14 03/02/20 History Cinnamon Bark [Cinnamon] 2,000 mg PO DAILY 05/30/15 03/02/20 History Cyanocobalamin [Vitamin B-12] 1,000 mcg PO DAILY 05/30/15 03/02/20 History Garlic 2 tab PO DAILY 05/30/15 03/02/20 History Pravastatin Sodium [Pravachol] 80 mg PO HS 05/30/15 03/02/20 History Metoprolol Tartrate [Lopressor] 100 mg PO BID 01/08/16 03/02/20 History Multivit-Min/FA/Lycopen/Lutein 1 tab PO DAILY 01/08/16 03/02/20 History [Centrum Silver Tablet] [place]-3 Fatty Acids/Fish Oil [Fish 1 cap PO DAILY 01/08/16 03/02/20 History Oil 1,000 mg Softgel] Aspirin EC [Ecotrin Low Dose] 81 mg PO DAILY #30 tablet. 01/09/16 03/02/20 Rx Empagliflozin [Jardiance] 25 mg PO DAILY 03/02/20 03/02/20 History Essence 500 mg PO DAILY 03/02/20 03/02/20 History Glimepiride [Amaryl] 4 mg PO [id number] 03/02/20 03/02/20 History Nitroglycerin Sl Tabs [Nitrostat] 0.4 mg SUBLINGUAL Q5M PRN 03/02/20 03/02/20 History Allergies Allergy/AdvReac Type Severity Reaction Status Date / Time No Known Allergies Allergy Verified 03/02/20 14:47 Physical Exam Vitals: Vital Signs Temp Pulse Pulse Resp BP BP Pulse Ox 03/03/20 08:00 98.8 F 113 H 18 121/83 96 03/03/20 03:29 98.3 F 81 15 113/66 97 03/03/20 02:00 74 16 03/02/20 23:58 97.8 F 74 16 114/90 94 L 03/02/20 20:00 98.3 F 72 16 108/64 94 L 03/02/20 17:07 98.0 F 81 121/74 99 03/02/20 15:00 71 16 117/81 98 03/02/20 14:00 79 15 117/81 99 03/02/20 13:52 76 20 117/81 100 03/02/20 13:00 79 16 136/91 98 03/02/20 12:37 98.6 F 80 20 126/86 97 Intake and Output 03/02/20 03/03/20 03/03/20 22:59 06:59 14:59 Intake Total 340.333 97.61 Balance 340.333 97.61 Intake: Intake, IV Titration 100.333 97.61 Amount Heparin Sod,Pork in 0.45% 100.333 97.61 NaCl 25,000 unit In 0.45 % NaCl 1 250ml.bag @ 9. 669 UNITS/KG/HR 10 mls/hr IV .Q24H [facility] Rx#: [id number] Oral 240 Other: # Voids 1 1 1 Weight 103.419 kg 116.5 kg Results 03/02/20 13:01 03/02/20 13:01 Cardiac Enzymes 03/02/20 03/02/20 03/02/20 Range/Units 13:01 13:01 17:00 AST 47 (17-59) U/L Troponin I 0.882 H* 18.500 H* (0.000-0.034) ng/mL 03/02/20 Range/Units 19:40 AST (17-59) U/L Troponin I 21.700 H* (0.000-0.034) ng/mL Coagulation 03/02/20 03/02/20 03/03/20 Range/Units 13:01 22:10 05:40 PT 10.0 (9.0-12.0) sec APTT 22.2 29.0 38.3 H (22.0-30.0) sec Lipids 03/03/20 Range/Units 05:40 Triglycerides 255 H (<150) mg/dL Cholesterol 197 (<200) mg/dL HDL Cholesterol 32 L (40-60) mg/dL CBC 03/02/20 Range/Units 13:01 WBC 9.4 (3.8-10.6) k/uL RBC 5.43 (4.30-5.90) m/uL Hgb 16.9 (13.0-17.5) gm/dL Hct 49.9 (39.0-53.0) % Plt Count 176 (150-450) k/uL Comprehensive Metabolic Panel 03/02/20 Range/Units 13:01 Sodium 137 (137-145) mmol/L Potassium 4.5 (3.5-5.1) mmol/L Chloride 105 (98-107) mmol/L Carbon Dioxide 24 (22-30) mmol/L BUN 28 H (9-20) mg/dL Creatinine 1.04 (0.66-1.25) mg/dL Glucose 270 H (74-99) mg/dL Calcium 10.3 H (8.4-10.2) mg/dL AST 47 (17-59) U/L ALT 28 (4-49) U/L Alkaline Phosphatase 71 (38-126) U/L Total Protein 7.3 (6.3-8.2) g/dL Albumin 4.3 (3.5-5.0) g/dL Current Medications Generic Name Dose Route Start Last Admin Trade Name Freq PRN Reason Stop Dose Admin Acetaminophen 650 mg 03/02/20 20:16 03/02/20 21:26 Acetaminophen Tab 325 Mg Tab PO 650 mg Q6HR PRN Administration Fever and/ or Pain Alprazolam 0.25 mg 03/03/20 08:46 Alprazolam 0.25 Mg Tab PO Q6HR PRN Mild Anxiety Alprazolam 0.5 mg 03/03/20 08:46 Alprazolam 0.5 Mg Tab PO Q6HR PRN Moderate Anxiety Aspirin 81 mg 03/03/20 09:00 03/03/20 08:32 Aspirin 81 Mg PO 81 mg DAILY ЕКАТЕРИНА Administration Furosemide 20 mg 03/03/20 09:00 03/03/20 08:31 Furosemide 20 Mg Tab PO 20 mg DAILY ЕКАТЕРИНА Administration Heparin Sodium/Sodium Chloride 250 mls @ 10 mls/hr 03/02/20 13:30 03/03/20 07:15 25,000 unit/ Sodium Chloride IV 13.669 units/kg/hr .Q24H ЕКАТЕРИНА 14.136 mls/hr Titration Protocol 9.669 UNITS/KG/HR Sodium Chloride 1,000 ml/ IV 1,000 mls @ 116.5 mls/hr 03/03/20 08:46 Solution IV 03/03/20 17:21 .Q8H36M ONE 1 ML/KG/HR Insulin Aspart 0 unit 03/02/20 21:00 03/03/20 06:21 Insulin Aspart (Novolog) 100 Unit/Ml Vial SQ 2 unit ACHS ЕКАТЕРИНА Administration Protocol Isosorbide Mononitrate 30 mg 03/04/20 09:00 Isosorbide Mononitrate Er 30 Mg Tab.Er.24h PO DAILY ЕКАТЕРИНА Lisinopril 20 mg 03/03/20 09:00 03/03/20 08:31 Lisinopril 20 Mg Tab PO 20 mg BID ЕКАТЕРИНА Administration Metoprolol Tartrate 100 mg 03/03/20 09:00 03/03/20 08:32 Metoprolol Tartrate 50 Mg Tab PO 100 mg BID ЕКАТЕРИНА Administration Nitroglycerin 0.4 mg 03/02/20 15:35 Nitroglycerin Sl Tabs 0.4 Mg Tab SUBLINGUAL Q5M PRN Chest Pain Pravastatin Sodium 80 mg 03/03/20 21:00 Pravastatin Sodium 80 Mg Tab PO HS [facility] Intake and Output 03/02/20 03/03/20 03/03/20 22:59 06:59 14:59 Intake Total 340.333 97.61 Balance 340.333 97.61 Intake: Intake, IV Titration 100.333 97.61 Amount Heparin Sod,Pork in 0.45% 100.333 97.61 NaCl 25,000 unit In 0.45 % NaCl 1 250ml.bag @ 9. 669 UNITS/KG/HR 10 mls/hr IV .Q24H [facility] Rx#: [id number] Oral 240 Other: # Voids 1 1 1 Weight 103.419 kg 116.5 kg 03/02/20 13:01 03/02/20 13:01
[2020-03-03] MEDS ORDERED: IOPAMIDOL-370 100ML BTL INJ ONE ×2 (11:27→11:29)
[2020-03-03] MEDS ORDERED: ATROPINE SULFATE 0.1 MG/ML 10ML SYRINGE IV PRN (11:41)
[2020-03-03] MEDS ORDERED: ZOLPIDEM 5 MG TAB PO PRN (11:41)
[2020-03-03] MEDS ORDERED: RX INFO: IV CONTRAST WAS GIVEN 1 EACH MISC MISCELLANE PRN (11:41)
[2020-03-03] MEDS ORDERED: MAG HYDROX/AL HYDROX/SIMETH 30 ML CUP PO PRN (11:41)
[2020-03-03 12:09] LABS: Glucose,Whole Blood 155 mg/dL (75-99)
--- NOTE | 2020-03-03 13:45 | CC ---
CARDIAC CATHETERIZATION REPORT INDICATION: Acute non ST-segment elevation MO. PROCEDURE NOTE: After obtaining informed consent, left heart catheterization and coronary angiogram were performed via the right femoral artery using standard Beba catheters. The patient tolerated the procedure well without any obvious immediate complication. The venous graft to the circ was well engaged using a evans catheter. We could not obtain selective images of the ESPINOZA in spite of using the Martha and the ESPINOZA. We will ask the intervention is to try and obtain those images. FINDINGS: 1. Hemodynamics left ventricular end-diastolic pressure is 16 mm. There is no significant gradient across the aortic valve. 2. Left ventriculogram nephrogram is not performed. ANGIOGRAPHIC DATA: [place] CORONARIES: 1. Right coronary artery is a large dominant vessel. It was previously stented in the proximal part and the stent appears patent. 2. Left main coronary artery shows a 90% stenosis in the distal portions. It bifurcates into LAD and circumflex coronary artery. Circumflex coronary artery is totally occluded proximally. 3. LAD is shows competitive flow from the ESPINOZA and there is moderate to severe disease involving mid LAD and the diagonal branch. 4. Selective injection of the venous graft to OM: Venous graft to OM appears patent, but in the [place] circulation, the OM branch appears are occluded and it is full of thrombus. Venous graft to diagonal was occluded in a previous cardiac catheterization. CONCLUSION: [place] 3 vessel coronary artery disease with patent stent within the right coronary artery, occluded [place] circumflex coronary artery with competitive flow in the LAD from patent ESPINOZA and patent venous graft to circ with an acute occlusion of the [place] circumflex coronary artery the OM branch. PLAN: I will have Dr. Jiménez the on-call aprn to evaluate the angiograms and advise angioplasty. MMODL / IJN: [id number] /
[2020-03-03 17:01] LABS: Glucose,Whole Blood 233 mg/dL (75-99)
[2020-03-03 20:12] LABS: Glucose,Whole Blood 197 mg/dL (75-99)
--- NOTE | 2020-03-03 20:12 | P.PRCINT ---
Percutaneous Coronary Int. - Percutaneous Coronary Intervention Percutaneous Coronary Intervention: Procedures performed: SVG to OM angiography, ESPINOZA to LAD angiography, PCI of proximal to mid OM2 with a 2.25 x 18 mm Xience YING. Procedure performed by: Dr Seven Jiménez DO Indications: NSTEMI HPI: Patient is a pleasant 59-year-old male who presented with chest pain and was found to have NSTEMI. Patient has a history of CABG as well as PCI of his RCA in the past. He is currently chest pain free. He had a diagnostic catheterization performed which showed obstructive disease in the proximal part of OM1 with large amount of thrombus burden. ESPINOZA to LAD was unable to be fully engaged. Conscious sedation: Conscious sedation was performed under the direct supervion of myself using Versed and Fentanyl for 52 minutes. Description of procedure: The risks, benefits and alternatives of heart catheterization and PCI were explained in detail to the patient before the procedure and informed consent was obtained. The patient was brought to the Account Financial Manager and was prepped and draped in the usual fashion. Patient already had a diagnostic procedure performed by my partner, see note for full details. A 6Fr sheath had been placed in the right femoral artery. ESPINOZA to LAD angiography was performed with a 6Fr LUCIANA catheter. There was what appeared to be some spasm of the proximal LAD which did somewhat improve with intraarterial Nitro however also appeared to be a 20-30% proximal ESPINOZA stenosis. A decision was made to intervene on the OM2. Heparin was given for an ACT greater than 250. A 6Fr LCB guide was used to engage the SVG to OM. A 0.014 BMW wire was placed in the distal OM2. There was extensive thrombus noted and therefore Penumbra thrombectomy was performed. Guideliner was used for support. Next, a 2.25 x 18 mm Xience YING stent was then placed. Angiograms were obtained in multiple views. Pre intervention there was 95% stenosis and TAYLOR 2 flow and post intervention there was <10% residual stenosis and TAY[place] 3 flow and no evidence of any dissection. The wire was then removed and final angiograms were obtained. A right femoral angiogram had been performed showing adequate anatomy for closure and therefore a 6Fr Angioseal was placed and hemostasis was achieved. The patient tolerated the procedure well. The patient was transferred to the post catheterization holding area in stable condition. Coronary angiography: Left Main: Not imaged Circumflex: Not imaged LAD: Not imaged RCA: Not imaged ESPINOZA to LAD: There is proximal 40-50% ESPINOZA stenosis however improved to what appeared to be 30-40% stenosis after intrarterial nitro. Otherwise there is no significant disease of the ESPINOZA or distal LAD. SVG to OM: Appears to be a jump to both OM1 and OM2. The SVG backfills the circumflex with more proximal 80% circumflex disease and mild to moderate disease of OM1, circumflex. OM2 is a small to moderate caliber vessel with a 95% proximal to mid stenosis with large amount of thrombus. Conclusions: 1. Successful PCI of proximal to mid OM2 with a 2.25 x 18 mm Xience YING. 2. Mild to moderate disease of the proximal ESPINOZA Plan: 1. Aggressive risk factor modifications per most recent ACC/AHA guidelines. 2. Continue dual antiplatelets for 12 months.
[2020-03-03] MEDS: PRAVASTATIN SODIUM 80 MG TAB PO SCH (20:31)
[2020-03-03] MEDS: HEPARIN SOD,PORK IN 0.45% NACL 25,000 UNIT in 0.45% NACL 1 250ML.BAG IV SCH (22:14)
[2020-03-04 06:20] LABS: Glucose,Whole Blood 209 mg/dL (75-99)
[2020-03-04] MEDS: INSULIN ASPART (NovoLOG) 100 UNIT/ML VIAL SQ SCH ×4 (06:40→20:23)
[2020-03-04 07:57] LABS: African American GFR (CKD) >90 (>60 ml/min/1.73 sqM); Non-African American GFR(CKD) 90 (>60 ml/min/1.73 sqM)
--- NOTE | 2020-03-04 08:37 | P.PN ---
Subjective Patient is admitted for non-ST elevation myocardial infarction. Patient troponin is around the 22 patient will undergo cardiac catheterization today presently on IV heparin. 03/04/2020 Patient had a cardiac catheterization and stenting to saphenous venous graft no chest pain patient is clinically doing well the patient is presently on your antiplatelet therapy statin beta j carlos. Constitutional: Denied any fatigue denied any fever. Cardio vascular: denied any chest pain, palpitations Gastrointestinal denied any nausea vomiting Pulmonary: Denied any shortness of breath cough Neurologic denied any new focal deficits All inpatient medications were reviewed and appropriate changes in these medications as dictated in the interval history and assessment and plan. Objective - Vital Signs Vital signs: Vital Signs Temp 99.1 F 03/04/20 03:47 Pulse 77 03/04/20 03:47 Resp 17 03/04/20 03:47 BP 120/71 03/04/20 03:47 Pulse Ox 98 03/04/20 03:47 Intake & Output 03/03/20 03/04/20 03/04/20 18:59 06:59 18:59 Intake Total 727.61 706 540 Output Total 1100 Balance -372.39 706 540 Weight 101.5 kg Intake: IV 150 Intake, IV Titration 97.61 466 Amount Heparin Sod,Pork in 0.45% 97.61 NaCl 25,000 unit In 0.45 % NaCl 1 250ml.bag @ 9. 669 UNITS/KG/HR 10 mls/hr IV .Q24H [facility] Rx#: [id number] Sodium Chloride 0.9% 1, 466 000 ml In Empty Bag 1 bag @ 1 ML/KG/HR 116.5 mls/ hr IV .Q8H36M ONE Rx#: [id number] Oral 480 240 540 Output: Urine 1100 Other: # Voids 1 5 - Exam PHYSICAL EXAMINATION: GENERAL: The patient is alert and oriented x3, not in any acute distress. Well developed, well nourished. HEENT: Pupils are round and equally reacting to light. EOMI. No scleral icterus. No conjunctival pallor. Normocephalic, atraumatic. No pharyngeal erythema. No thyromegaly. CARDIOVASCULAR: S1 and S2 present. No murmurs, rubs, or gallops. PULMONARY: Chest is clear to auscultation, no wheezing or crackles. ABDOMEN: Soft, nontender, nondistended, normoactive bowel sounds. No palpable organomegaly. MUSCULOSKELETAL: No joint swelling or deformity. EXTREMITIES: No cyanosis, clubbing, or pedal edema. NEUROLOGICAL: Gross neurological examination did not reveal any focal deficits. SKIN: No rashes. - Labs CBC & Chem 7: 03/02/20 13:01 03/04/20 06:36 Labs: Abnormal Lab Results - Last 24 Hours (Table) 03/02/20 03/02/20 03/03/20 Range/Units 16:38 20:00 06:17 POC Glucose (mg/dL) 140 H 141 H 152 H (75-99) mg/dL 03/03/20 03/03/20 03/03/20 Range/Units 11:53 16:49 20:03 POC Glucose (mg/dL) 155 H 233 H 197 H (75-99) mg/dL 03/04/20 Range/Units 06:02 POC Glucose (mg/dL) 209 H (75-99) mg/dL Assessment and Plan Plan: -Acute non-ST elevation myocardial infarction: Maeve had cardiac catheterization and stenting to saphenous venous graft clinically doing well. Patient is on dual antiplatelet therapy Patient is on beta blockers and statin. -Coronary artery disease with history of CABG in the past -Type 2 diabetes mellitus -Hypertension -Hyperlipidemia
[2020-03-04] MEDS: CLOPIDOGREL 75 MG TAB PO SCH (08:43)
[2020-03-04] MEDS: ISOSORBIDE MONONITRATE ER 30 MG TAB.ER.24H PO SCH (08:43)
[2020-03-04] MEDS: FUROSEMIDE 20 MG TAB PO SCH (08:43)
[2020-03-04] MEDS: METOPROLOL TARTRATE 50 MG TAB PO SCH ×2 (08:43→20:23)
[2020-03-04] MEDS: ASPIRIN 81 MG PO SCH (08:43)
[2020-03-04] MEDS: lisinopriL 20 MG TAB PO SCH ×2 (08:43→20:23)
--- NOTE | 2020-03-04 09:31 | P.PN ---
Subjective Progress Note Date: 03/04/20 Principal diagnosis: Acute coronary syndrome This is a pleasant 59-year-old gentleman with coronary artery disease and prior coronary artery that was grafting who was admitted to the hospital with chest discomfort and ruled in for acute non-ST. Heart catheterization was performed and that revealed severe disease involving the SVG to LCx where the patient underwent successful PCI. He was seen this morning. He is asymptomatic from a cardiovascular standpoint of view. The right groin is soft and nontender and without any bruises. He is on dual antiplatelet therapy along with anti-ischemic medications along with oral nitrates along with a statin. We'll follow-up on the echocardiogram and continue monitoring the patient for additional 24 hours Objective - Vital Signs Vital signs: Vital Signs Temp 99.1 F 03/04/20 03:47 Pulse 80 03/04/20 08:00 Resp 18 03/04/20 08:00 BP 129/89 03/04/20 08:00 Pulse Ox 98 03/04/20 08:00 Intake & Output 03/03/20 03/04/20 03/04/20 18:59 06:59 18:59 Intake Total 727.61 706 540 Output Total 1100 Balance -372.39 706 540 Weight 101.5 kg Intake: IV 150 Intake, IV Titration 97.61 466 Amount Heparin Sod,Pork in 0.45% 97.61 NaCl 25,000 unit In 0.45 % NaCl 1 250ml.bag @ 9. 669 UNITS/KG/HR 10 mls/hr IV .Q24H [facility] Rx#: [id number] Sodium Chloride 0.9% 1, 466 000 ml In Empty Bag 1 bag @ 1 ML/KG/HR 116.5 mls/ hr IV .Q8H36M [facility] Rx#: [id number] Oral 480 240 540 Output: Urine 1100 Other: # Voids 1 5 - Constitutional General appearance: Present: no acute distress - Respiratory Respiratory: bilateral: CTA - Cardiovascular Rhythm: regular Heart sounds: normal: S1, S2 - Labs CBC & Chem 7: 03/02/20 13:01 03/04/20 06:36 Labs: Abnormal Lab Results - Last 24 Hours (Table) 03/02/20 03/02/20 03/03/20 Range/Units 16:38 20:00 06:17 POC Glucose (mg/dL) 140 H 141 H 152 H (75-99) mg/dL 03/03/20 03/03/20 03/03/20 Range/Units 11:53 16:49 20:03 POC Glucose (mg/dL) 155 H 233 H 197 H (75-99) mg/dL 03/04/20 Range/Units 06:02 POC Glucose (mg/dL) 209 H (75-99) mg/dL Assessment and Plan Assessment: Assessment #1 acute coronary syndrome #2 status post PCI of the SVG to LCx #3 hypertension #4 dyslipidemia Plan #1 continue the current medical regimen #2 follow-up on the echocardiogram #3 possible discharge in the next 24 hours
[2020-03-04 10:23] VITALS: BMI 34.0
[2020-03-04 11:47] LABS: Glucose,Whole Blood 228 mg/dL (75-99)
--- NOTE | 2020-03-04 13:45 | ECHOF ---
Referral Reason:chest pain, NSTEMI MEASUREMENTS -------- HEIGHT: 172.7 cm WEIGHT: 101.2 kg BP: 120/71 IVSd: 1.2 cm (0.6 - 1.1) LVIDd: 5.6 cm (3.9 - 5.3) LVPWd: 1.2 cm (0.6 - 1.1) IVSs: 1.7 cm LVIDs: 3.3 cm LVPWs: 1.5 cm LA Diam: 3.7 cm (2.7 - 3.8) RVIDd: 3.8 cm (< 3.3) LAESV Index (A-L): 24.22 ml/m Ao Diam: 4.2 cm (2.0 - 3.7) AV Cusp: 2.4 cm (1.5 - 2.6) EPSS: 0.5 cm MV E Raza: 0.83 m/s MV DecT: 266 ms MV A Raza: 0.92 m/s MV E/A Ratio: 0.90 AR PHT: 539 ms RAP: 5.00 mmHg RVSP: 25.88 mmHg MV EF SLOPE: 47.71 mm/s (70 - 150) MV EXCURSION: 23.95 mm (> 18.000) FINDINGS -------- Sinus rhythm. This was a technically good study. The left ventricular size is normal. There is borderline concentric left ventricular hypertrophy. Overall left ventricular systolic function is low-normal with, an EF between 50 - 55 %. Apical inf erior LV wall motion is hypokinetic. Apical septum LV wall motion is hypokinetic. The right ventricle is mild to moderately enlarged. Normal LA size by volume 22+/-6 ml/m2. The right atrium is normal in size. Lipomatous Hypertrophy of the atrial septum is present The aortic valve is trileaflet and appears structurally normal. There is mild aortic regurgitation. Mild mitral annular calcification present. Mild mitral regurgitation is present. Mild tricuspid regurgitation present. Right ventricular systolic pressure is normal at < 35 mmHg. Trace/mild (physiologic) pulmonic regurgitation. The aortic root is dilated measuring 4.2cm. Normal inferior vena cava with normal inspiratory collapse consistent with estimated right atrial pre ssure of 5 mmHg. There is no pericardial effusion. CONCLUSIONS -------- 1. The left ventricular size is normal. 2. There is borderline concentric left ventricular hypertrophy. 3. Overall left ventricular systolic function is low-normal with, an EF between 50 - 55 %. 4. Apical inferior LV wall motion is hypokinetic. 5. Apical septum LV wall motion is hypokinetic. 6. The right ventricle is mild to moderately enlarged. 7. Lipomatous Hypertrophy of the atrial septum is present 8. There is mild aortic regurgitation. 9. Mild mitral annular calcification present. 10. Mild mitral regurgitation is present. 11. Mild tricuspid regurgitation present. 12. Trace/mild (physiologic) pulmonic regurgitation. 13. The aortic root is dilated measuring 4.2cm. 14. There is no pericardial effusion. FREELANCE PROGRAMMER/APP DEVELOPER: Jackie Moran RDCS
[2020-03-04 16:33] LABS: Glucose,Whole Blood 288 mg/dL (75-99)
[2020-03-04 20:23] LABS: Glucose,Whole Blood 227 mg/dL (75-99)
[2020-03-04] MEDS: PRAVASTATIN SODIUM 80 MG TAB PO SCH (20:23)
[2020-03-05 03:13] VITALS: RESP 16
[2020-03-05 06:19] LABS: Glucose,Whole Blood 218 mg/dL (75-99)
[2020-03-05] MEDS: INSULIN ASPART (NovoLOG) 100 UNIT/ML VIAL SQ SCH ×2 (06:23→12:23)
--- NOTE | 2020-03-05 08:40 | P.PN ---
Subjective Progress Note Date: 03/05/20 Principal diagnosis: Acute coronary syndrome This is a pleasant 59-year-old gentleman with coronary artery disease and prior coronary artery that was grafting who was admitted to the hospital with chest discomfort and ruled in for acute non-ST. Heart catheterization was performed and that revealed severe disease involving the SVG to LCx where the patient underwent successful PCI. The patient was seen today. He remains asymptomatic from a cardiovascular standpoint of view. He is on maximize medical treatment including dual antiplatelet therapy. The echo revealed normal left ventricular systolic function. From a cardiovascular standpoint of view the patient can be di scharged home Objective - Vital Signs Vital signs: Vital Signs Temp 98.3 F 03/05/20 03:12 Pulse 67 03/05/20 03:12 Resp 16 03/05/20 03:12 BP 118/69 03/05/20 03:12 Pulse Ox 95 03/05/20 03:12 Intake & Output 03/04/20 03/05/20 03/05/20 18:59 06:59 18:59 Intake Total 1080 Output Total 400 Balance 680 Weight 101.5 kg 101.4 kg Intake: Oral 1080 Output: Urine 400 Other: # Voids 1 - Constitutional General appearance: Present: no acute distress - Respiratory Respiratory: bilateral: CTA - Cardiovascular Rhythm: regular Heart sounds: normal: S1, S2 - Labs CBC & Chem 7: 03/02/20 13:01 03/04/20 06:36 Labs: Abnormal Lab Results - Last 24 Hours (Table) 03/04/20 03/04/20 03/04/20 Range/Units 11:45 16:30 20:22 POC Glucose (mg/dL) 228 H 288 H 227 H (75-99) mg/dL 03/05/20 Range/Units 06:17 POC Glucose (mg/dL) 218 H (75-99) mg/dL Assessment and Plan Assessment: Assessment #1 acute coronary syndrome #2 status post PCI of the SVG to LCx #3 hypertension #4 dyslipidemia Plan #1 continue the current medical regimen #2 the patient can be discharged home
[2020-03-05 09:08] VITALS: TEMP 98.4
[2020-03-05] MEDS: CLOPIDOGREL 75 MG TAB PO SCH (09:10)
[2020-03-05] MEDS: lisinopriL 20 MG TAB PO SCH (09:10)
[2020-03-05] MEDS: FUROSEMIDE 20 MG TAB PO SCH (09:10)
[2020-03-05] MEDS: ASPIRIN 81 MG PO SCH (09:10)
[2020-03-05] MEDS: METOPROLOL TARTRATE 50 MG TAB PO SCH (09:10)
[2020-03-05] MEDS: ISOSORBIDE MONONITRATE ER 30 MG TAB.ER.24H PO SCH (09:11)
[2020-03-05 11:52] LABS: Glucose,Whole Blood 308 mg/dL (75-99)
[2020-03-05 12:14] VITALS: BP 111/74; PULSE 72
--- NOTE | 2020-03-06 09:47 | P.DS ---
Providers Date of admission: 03/02/20 15:35 Expected date of discharge: 03/05/20 Attending physician: Melissa Guerrero Consults: 03/02/20 15:35 Consult Physician Urgent Consulting Provider: Kimi Harris Consult Reason/Comments: Non-STEMI Do you want consulting provider notified?: Yes 03/03/20 11:41 Consult Physician Routine Consulting Provider: Kimi Harris Consult Reason/Comments: Post Interventional patient Do you want consulting provider notified?: Already Contacted Primary care physician: Sana Wills Hospital Course: Final diagnosis -Acute non-ST elevation myocardial infarction -Status post stenting to the saphenous venous graft -Coronary artery disease with history of CABG in the past -Type 2 diabetes mellitus -Hypertension -Hyperlipidemia Discharge disposition Patient is being discharged in a stable condition with guarded prognosis to home. Patient will follow-up with Dr. Velázquez in the outpatient setting upon discharge. Patient also instructed to follow-up with Dr. Goldsmith in the outpatient setting in 1 week. Patient will require home oxygen at 2-3 L due to Covid 19. Total time taken is greater than 35 minutes. History of present illness This is a 65-year-old male who was recently admitted with non-ST elevation myocardial infarction and patient underwent cardiac catheterization and was placed on IV heparin. Cardiology evaluated the patient and underwent cardiac catheterization with stenting and placed on dual antiplatelet therapy along with statin. Patient will follow-up with cardiology in one week as discussed and scheduled. Currently no reports of chest pain, shortness of breath, or palpitations. Patient is afebrile. No reports of nausea or vomiting and patient is tolerating diet. Patient will be discharged today. On exam vital signs are stable. Temp is 98.4F, pulse is 72, respirations are 16, blood pressure is 111/74, oxygen saturation is 97% on room air. Cardio S1, S2 are muffled. Respiratory system shows diminished breath sounds at the bases with no wheezing or rhonchi noted. Abdomen is soft and nontender. Nervous system shows no focal deficits. Please refer to medication reconciliation sheet for a list of medications. Patient Condition at Discharge: Stable Plan - Discharge Summary Discharge Rx Participant: No New Discharge Prescriptions: New Clopidogrel [Plavix] 75 mg PO DAILY 30 Days #30 tab Continue Cetirizine HCl [Zyrtec] 10 mg PO DAILY Pantoprazole Sodium 40 mg PO DAILY sitaGLIPtin PHOS/metFORMIN HCL [Janumet 50-1,000 mg Tablet] 1 tab PO BID lisinopriL [Zestril] 20 mg PO BID Furosemide [Lasix] 20 mg PO DAILY Potassium Chloride [Klor-Con 10] 10 meq PO DAILY Isosorbide Mononitrate ER [Imdur] 30 mg PO DAILY Ascorbic Acid [Vitamin C] 500 mg PO DAILY Cholecalciferol [Vitamin D3 (25 Mcg = 1000 Iu)] 1,000 unit PO DAILY Cinnamon Bark [Cinnamon] 2,000 mg PO DAILY Garlic 2 tab PO DAILY Cyanocobalamin [Vitamin B-12] 1,000 mcg PO DAILY Pravastatin Sodium [Pravachol] 80 mg PO HS Metoprolol Tartrate [Lopressor] 100 mg PO BID Multivit-Min/FA/Lycopen/Lutein [Centrum Silver Tablet] 1 tab PO DAILY [place]-3 Fatty Acids/Fish Oil [Fish Oil 1,000 mg Softgel] 1 cap PO DAILY Aspirin EC [Ecotrin Low Dose] 81 mg PO DAILY #30 tablet. Empagliflozin [Jardiance] 25 mg PO DAILY Essence 500 mg PO DAILY Glimepiride [Amaryl] 4 mg PO AC-BRKFST Nitroglycerin Sl Tabs [Nitrostat] 0.4 mg SUBLINGUAL Q5M PRN PRN Reason: Chest Pain Discharge Medication List Cetirizine HCl [Zyrtec] 10 mg PO DAILY 09/24/13 [History] Furosemide [Lasix] 20 mg PO DAILY 09/24/13 [History] Pantoprazole Sodium 40 mg PO DAILY 09/24/13 [History] Potassium Chloride [Klor-Con 10] 10 meq PO DAILY 09/24/13 [History] lisinopriL [Zestril] 20 mg PO BID 09/24/13 [History] sitaGLIPtin PHOS/metFORMIN HCL [Janumet 50-1,000 mg Tablet] 1 tab PO BID 09/24/13 [History] Ascorbic Acid [Vitamin C] 500 mg PO DAILY 03/19/14 [History] Cholecalciferol [Vitamin D3 (25 Mcg = 1000 Iu)] 1,000 unit PO DAILY 03/19/14 [History] Isosorbide Mononitrate ER [Imdur] 30 mg PO DAILY 03/19/14 [History] Cinnamon Bark [Cinnamon] 2,000 mg PO DAILY 05/30/15 [History] Cyanocobalamin [Vitamin B-12] 1,000 mcg PO DAILY 05/30/15 [History] Garlic 2 tab PO DAILY 05/30/15 [History] Pravastatin Sodium [Pravachol] 80 mg PO HS 05/30/15 [History] Metoprolol Tartrate [Lopressor] 100 mg PO BID 01/08/16 [History] Multivit-Min/FA/Lycopen/Lutein [Centrum Silver Tablet] 1 tab PO DAILY 01/08/16 [History] Sidell-3 Fatty Acids/Fish Oil [Fish Oil 1,000 mg Softgel] 1 cap PO DAILY 01/08/16 [History] Aspirin EC [Ecotrin Low Dose] 81 mg PO DAILY #30 tablet.dr 01/09/16 [Rx] Empagliflozin [Jardiance] 25 mg PO DAILY 03/02/20 [History] Essence 500 mg PO DAILY 03/02/20 [History] Glimepiride [Amaryl] 4 mg PO AC-BRKFST 03/02/20 [History] Nitroglycerin Sl Tabs [Nitrostat] 0.4 mg SUBLINGUAL Q5M PRN 03/02/20 [History] Clopidogrel [Plavix] 75 mg PO DAILY 30 Days #30 tab 03/05/20 [Rx] Follow up Appointment(s)/Referral(s): [facility],Cardiac [NON-STAFF] - 1 Week (After discharge, you will follow- up with your route aide. Once you have obtained a prescription for cardiac rehab, please call [phone] to set up an evaluation.) Sana Wills MD [Primary Care Provider] - 03/13/20 11:15 am Brian Jefferson MD [STAFF PHYSICIAN] - 03/12/20 9:15 am Patient Instructions/Handouts: *Surgery [facility] - After Heart Catheterization - [employer] Installer Instructions Activity/Diet/Wound Care/Special Instructions: Activity limited until follow-up Follow up with primary care provider upon discharge Follow-up with cardiology in the outpatient setting Continue with heart healthy diet Discharge Disposition: HOME SELF-CARE
== END 2020-03-05 15:38 | disposition home or self-care (01) | DRG 247 ==
LOC: EC 12:18 → 3SCARD 15:35
PROVIDERS: ADMIT Internal Medicine; ATTEND Internal Medicine
PROC: 02C03ZZ Extirpation of Matter from Coronary Artery, One Artery, Percutaneous Approach (ICD-10-PCS; principal; 2020-03-04)
PROC: 027034Z Dilation of Coronary Artery, One Artery with Drug-eluting Intraluminal Device, Percutaneous Approach (ICD-10-PCS; principal; 2020-03-04)
PROC: 4A023N7 Measurement of Cardiac Sampling and Pressure, Left Heart, Percutaneous Approach (ICD-10-PCS; 2020-03-04)
PROC: B2111ZZ Fluoroscopy of Multiple Coronary Arteries using Low Osmolar Contrast (ICD-10-PCS; 2020-03-04)
PROC: B2121ZZ Fluoroscopy of Single Coronary Artery Bypass Graft using Low Osmolar Contrast (ICD-10-PCS; 2020-03-04)
DX: I21.4 Non-ST elevation (NSTEMI) myocardial infarction (principal); E11.9 Type 2 diabetes mellitus without complications; E66.9 Obesity, unspecified; E78.5 Hyperlipidemia, unspecified; I10 Essential (primary) hypertension; I25.10 Atherosclerotic heart disease of native coronary artery without angina pectoris; M10.9 Gout, unspecified; Z68.39 Body mass index [BMI] 39.0-39.9, adult; Z79.82 Long term (current) use of aspirin; Z79.84 Long term (current) use of oral hypoglycemic drugs; Z79.899 Other long term (current) drug therapy; Z95.5 Presence of coronary angioplasty implant and graft; Z95.1 Presence of aortocoronary bypass graft; Z90.49 Acquired absence of other specified parts of digestive tract; Z87.19 Personal history of other diseases of the digestive system; Z86.010 Personal history of colon polyps; Z98.890 Other specified postprocedural states; Z82.49 Family history of ischemic heart disease and other diseases of the circulatory system; Z83.3 Family history of diabetes mellitus; Z82.61 Family history of arthritis; Z82.0 Family history of epilepsy and other diseases of the nervous system; Z84.89 Family history of other specified conditions
CPT/HCPCS: 36415; 71046; 80053; 80061; 82565; 83735; 84484; 85025; 85347; 85610; 85730; 92973; 93005; 93306; 93459; 96365; 96366; 96376; 99291

== ENCOUNTER → 2020-07-11 | Outpatient (CLI) | payer BC ==
--- NOTE | 2020-07-11 17:27 | XR ---
EXAMINATION TYPE: XR cervical spine comp DATE OF EXAM: 07/11/2020 TECHNIQUE: Frontal, lateral, oblique, swimmers, and open mouth view of the cervical spine are obtaine d. HISTORY: M54.2, G71.8 . Neck pain and shoulder tingling for one month. COMPARISON: None FINDINGS: The cervical spine is visualized in its entirety from C1 thru the top of T1 level. Normal alignment without evidence of acute fracture or dislocation. There is uncovertebral hypertrophy, face t arthropathy, and mild degenerative disc disease involving multiple levels bilaterally. The pre-vert ebral soft tissue appears within normal limits. Neural foramina demonstrate varying degrees of neural foraminal bony encroachment on the left involving C3-C4 and C4-C5, and on the right involving C3-C4, C4-C5, and C5-C6. The most severe neural foraminal bony encroachment is most severe at C4-C5 on the right. The dens is within normal limits on the open mouth view. IMPRESSION: 1. No acute fracture or dislocation is seen in the cervical spine. 2. Significant degenerative changes with varying degrees of bilateral multilevel neural foraminal st enosis, most severe at C4-C5 on the right.
== END | disposition home or self-care (01) ==
LOC: RADXRMAIN 15:24
PROVIDERS: ATTEND Family Medicine
DX: M47.812 Spondylosis without myelopathy or radiculopathy, cervical region (principal); M99.71 Connective tissue and disc stenosis of intervertebral foramina of cervical region
CPT/HCPCS: 72050

== ENCOUNTER → 2020-09-02 | Outpatient (CLI) | payer BC ==
--- NOTE | 2020-09-03 01:50 | MR ---
EXAMINATION TYPE: MR cervical spine wo con DATE OF EXAM: 09/02/2020 COMPARISON: None HISTORY: Tingling in neck for weeks. Multiplanar multiecho imaging of the cervical spine was performed without contrast. Vertebra have normal alignment. Disc spaces are fairly normal. Cervical spinal cord has normal signal pattern. There is no edema. Brainstem appears intact. There is some facet arthropathy and mild narro wing of the spinal canal at C5-6 and C6-7. Canal measures 7.5 mm at C6-7. The canal measures 9 mm at C5-6. There is small posterior disc bulging at C5-6 and C6-7. I see no evidence of bony destructive p rocess. There is no compression fracture. Exam limited slightly by motion. IMPRESSION: There is mild relative narrowing of the spinal canal at C5-6 and C6-7. No cord edema. No significant spinal stenosis. No evidence of any sizable cervical disc herniation.
== END | disposition home or self-care (01) ==
LOC: RADMRIMAIN 15:34
PROVIDERS: ATTEND Family Medicine
DX: M48.02 Spinal stenosis, cervical region (principal)
CPT/HCPCS: 72141

== ENCOUNTER 2020-10-16 06:30 | Emergency (ER) | payer BC ==
[2020-10-16 06:39] VITALS: RESP 18
[2020-10-16] MEDS ORDERED: SODIUM CHLORIDE 0.9% 1,000 ML IV STA (07:06)
--- NOTE | 2020-10-16 07:07 | ED ---
General Adult HPI - General Chief complaint: Recheck/Abnormal Lab/Rx Stated complaint: Hypertension Time Seen by Provider: 10/16/20 06:41 Source: patient Mode of arrival: ambulatory Limitations: no limitations - History of Present Illness Initial comments: 59 y/o M w PMH of HTN, HLD, NSTEMI, presents for a CC of HTN. Pt states he woke up and checked his blood pressure around 4 am because he had a YIN. Pt states it was elevated 190/120. Patient then took his BP meds and came to the hospital. Pt denies any CP. Denies SOB. States YIN has also since resolved. Denies any other complaints such as nausea vomiting abdominal pain visual changes weakness. - Related Data Home Medications Medication Instructions Recorded Confirmed Cetirizine HCl [Zyrtec] 10 mg PO DAILY 09/24/13 03/02/20 Furosemide [Lasix] 20 mg PO DAILY 09/24/13 03/02/20 Pantoprazole Sodium 40 mg PO DAILY 09/24/13 03/02/20 Potassium Chloride [Klor-Con 10] 10 meq PO DAILY 09/24/13 03/02/20 lisinopriL [Zestril] 20 mg PO BID 09/24/13 03/02/20 sitaGLIPtin PHOS/metFORMIN HCL 1 tab PO BID 09/24/13 03/02/20 [Janumet 50-1,000 mg Tablet] Ascorbic Acid [Vitamin C] 500 mg PO DAILY 03/19/14 03/02/20 Cholecalciferol [Vitamin D3 (25 1,000 unit PO DAILY 03/19/14 03/02/20 Mcg = 1000 Iu)] Isosorbide Mononitrate ER [Imdur] 30 mg PO DAILY 03/19/14 03/02/20 Cinnamon Bark [Cinnamon] 2,000 mg PO DAILY 05/30/15 03/02/20 Cyanocobalamin [Vitamin B-12] 1,000 mcg PO DAILY 05/30/15 03/02/20 Garlic 2 tab PO DAILY 05/30/15 03/02/20 Pravastatin Sodium [Pravachol] 80 mg PO HS 05/30/15 03/02/20 Metoprolol Tartrate [Lopressor] 100 mg PO BID 01/08/16 03/02/20 Multivit-Min/FA/Lycopen/Lutein 1 tab PO DAILY 01/08/16 03/02/20 [Centrum Silver Tablet] [place]-3 Fatty Acids/Fish Oil [Fish 1 cap PO DAILY 01/08/16 03/02/20 Oil 1,000 mg Softgel] Empagliflozin [Jardiance] 25 mg PO DAILY 03/02/20 03/02/20 Essence 500 mg PO DAILY 03/02/20 03/02/20 Glimepiride [Amaryl] 4 mg PO AC-BRKFST 03/02/20 03/02/20 Nitroglycerin Sl Tabs [Nitrostat] 0.4 mg SUBLINGUAL Q5M PRN 03/02/20 03/02/20 Previous Rx's Medication Instructions Recorded Aspirin EC [Ecotrin Low Dose] 81 mg PO DAILY #30 tablet. 01/09/16 Clopidogrel [Plavix] 75 mg PO DAILY 30 Days #30 tab 03/05/20 Allergies Allergy/AdvReac Type Severity Reaction Status Date / Time No Known Allergies Allergy Verified 10/16/20 06:39 Review of Systems ROS Statement: Those systems with pertinent positive or pertinent negative responses have been documented in the HPI. ROS Other: All systems not noted in ROS Statement are negative. Past Medical History Past Medical History: Chest Pain / Angina, Diabetes Mellitus, Hyperlipidemia, Hypertension, Myocardial Infarction (SD) (NSTEMI) Additional Past Medical History / Comment(s): gout, stress test History of Any Multi-Drug Resistant Organisms: None Reported Past Surgical History: Cholecystectomy, Coronary Bypass/CABG, Heart Catheterization With Stent Additional Past Surgical History / Comment(s): QUAD CABG AUGUST [address] [facility], HEART CATH WITH STENTS X 2 A FEW YEARS PRIOR TO CABG AT [facility],COLONOSOCPY/POLYPECTOMY(BENIGN) Past Anesthesia/Blood Transfusion Reactions: No Reported Reaction Additional Past Anesthesia/Blood Transfusion Reaction / Comment(s): blood transfusion w/ cabg-no reacation Date of Last Stent Placement:: unk Past Psychological History: No Psychological Hx Reported Smoking Status: Never smoker Past Alcohol Use History: None Reported Past Drug Use History: None Reported - Past Family History Father History Unknown: Yes Family Medical History: Myocardial Infarction (SD) Additional Family Medical History / Comment(s): at 46 from [place], rheumatic fever when younger Mother Family Medical History: Dementia, Diabetes Mellitus General Exam Limitations: no limitations General appearance: alert Head exam: Present: atraumatic Eye exam: Present: normal appearance, PERRL, EOMI. Absent: scleral icterus, conjunctival injection ENT exam: Present: normal exam, mucous membranes moist Neck exam: Present: normal inspection, full ROM. Absent: tenderness Respiratory exam: Present: normal lung sounds bilaterally. Absent: respiratory distress, wheezes Cardiovascular Exam: Present: regular rate, normal rhythm, normal heart sounds GI/Abdominal exam: Present: soft, normal bowel sounds. Absent: distended, tenderness Neurological exam: Present: alert Course Vital Signs 10/16/20 10/16/20 10/16/20 06:36 06:45 07:39 Temperature 98.6 F Pulse Rate 70 66 Pulse Rate [ 60 Pulse Oximetery ] Respiratory 18 18 Rate Blood Pressure 148/62 137/81 O2 Sat by Pulse 100 100 Oximetry EKG Findings - EKG Comments: EKG Findings:: NSR, vent rate 61, [place] int 182, QRS duration 98, QTc 410 Medical Decision Making - Medical Decision Making Vitals are stable. On presentation to the emergency room patient has a blood pressure of 148/32 and 137/81. Patient has taken his medications about an hour ago. EKG shows a normal sinus rhythm. No evidence of ischemia. CBC unremarkable. CMP reveals hyperglycemia, history of diabetes and does take medication for this. Patient also dehydrated with a BUN of 30, given a liter fluid. Troponin is negative. Patient is a symptomatic on reevaluation. Patient is stable for outpatient follow-up with his doctor. Will return here for any worsening symptoms. - Lab Data Result diagrams: 10/16/20 07:30 10/16/20 07:30 Lab Results 10/16/20 10/16/20 10/16/20 Range/Units 07:30 07:30 07:30 WBC 5.6 (3.8-10.6) k/uL RBC 4.83 (4.30-5.90) m/uL Hgb 15.0 (13.0-17.5) gm/dL Hct 44.5 (39.0-53.0) % MCV 92.2 (80.0-100.0) fL MCH 31.2 (25.0-35.0) pg MCHC 33.8 (31.0-37.0) g/dL RDW 13.1 (11.5-15.5) % Plt Count 183 (150-450) k/uL MPV 7.9 Neutrophils % 66 % Lymphocytes % 23 % Monocytes % 5 % Eosinophils % 3 % Basophils % 1 % Neutrophils # 3.7 (1.3-7.7) k/uL Lymphocytes # 1.3 (1.0-4.8) k/uL Monocytes # 0.3 (0-1.0) k/uL Eosinophils # 0.2 (0-0.7) k/uL Basophils # 0.1 (0-0.2) k/uL Sodium 136 L (137-145) mmol/L Potassium 4.7 (3.5-5.1) mmol/L Chloride 102 (98-107) mmol/L Carbon Dioxide 24 (22-30) mmol/L Anion Gap 10 mmol/L BUN 30 H (9-20) mg/dL Creatinine 0.89 (0.66-1.25) mg/dL Est GFR (CKD-EPI)AfAm >90 (>60 ml/min/1.73 sqM) Est GFR (CKD-EPI)NonAf >90 (>60 ml/min/1.73 sqM) Glucose 234 H (74-99) mg/dL Calcium 10.6 H (8.4-10.2) mg/dL Total Bilirubin 0.5 (0.2-1.3) mg/dL AST 19 (17-59) U/L ALT 17 (4-49) U/L Alkaline Phosphatase 72 (38-126) U/L Troponin I <0.012 (0.000-0.034) ng/mL Total Protein 6.9 (6.3-8.2) g/dL Albumin 4.3 (3.5-5.0) g/dL Disposition Clinical Impression: Hypertension, Dehydration, Hyperglycemia Disposition: HOME SELF-CARE Condition: Good Instructions (If sedation given, give patient instructions): Hypertension (ED) Additional Instructions: Please continue to take your medication as directed. Increase fluid intake. Follow up with your doctor in 1-2 days. Return to the ER for any worsening symptoms. Is patient prescribed a controlled substance at d/c from ED?: No Referrals: Sana Wills MD [Primary Care Provider] - 1-2 days Time of Disposition: 08:51
[2020-10-16 07:45] LABS: Basophils # (A) 0.1 k/uL (0-0.2); Basophils % (A) 1 %; Eosinophils # (A) 0.2 k/uL (0-0.7); Eosinophils % (A) 3 %; HCT 44.5 % (39.0-53.0); Lymphocytes # (A) 1.3 k/uL (1.0-4.8); Lymphocytes % (A) 23 %; MCH 31.2 pg (25.0-35.0); MCHC 33.8 g/dL (31.0-37.0); MCV 92.2 fL (80.0-100.0); Mean Platelet Volume 7.9; Monocytes # (A) 0.3 k/uL (0-1.0); Monocytes % (A) 5 %; Neutrophils # (A) 3.7 k/uL (1.3-7.7); Neutrophils % (A) 66 %; Platelet Count 183 k/uL (150-450); RBC 4.83 m/uL (4.30-5.90); RDW 13.1 % (11.5-15.5); WBC 5.6 k/uL (3.8-10.6)
[2020-10-16 07:55] LABS: ALT 17 U/L (4-49); AST 19 U/L (17-59); African American GFR (CKD) >90 (>60 ml/min/1.73 sqM); Albumin 4.3 g/dL (3.5-5.0); Alkaline Phosphatase 72 U/L (38-126); Anion Gap 10 mmol/L; Blood Urea Nitrogen 30 mg/dL (9-20); Calcium 10.6 mg/dL (8.4-10.2); Carbon Dioxide 24 mmol/L (22-30); Chloride 102 mmol/L (98-107); Glucose 234 mg/dL (74-99); Non-African American GFR(CKD) >90 (>60 ml/min/1.73 sqM); Potassium 4.7 mmol/L (3.5-5.1); Sodium 136 mmol/L (137-145); Total Bilirubin 0.5 mg/dL (0.2-1.3); Total Protein 6.9 g/dL (6.3-8.2)
--- NOTE | 2020-10-16 08:07 | XR ---
EXAMINATION TYPE: XR chest 2V DATE OF EXAM: 10/16/2020 COMPARISON: 03/02/2020 TECHNIQUE: PA and lateral views submitted. HISTORY: Hypertension FINDINGS: The lungs are clear and there is no pneumothorax, pleural effusion, or focal pneumonia. Postsurgica l changes. Degenerative change spine. No overt failure. IMPRESSION: 1. No acute process.
[2020-10-16 09:07] VITALS: BP 112/78; PULSE 61; TEMP 98.7
== END 2020-10-16 09:09 | disposition home or self-care (01) ==
LOC: EC 06:30
DX: I10 Essential (primary) hypertension (principal); E86.0 Dehydration; E11.65 Type 2 diabetes mellitus with hyperglycemia; E78.5 Hyperlipidemia, unspecified; I25.2 Old myocardial infarction; Z79.82 Long term (current) use of aspirin; Z79.02 Long term (current) use of antithrombotics/antiplatelets; Z79.84 Long term (current) use of oral hypoglycemic drugs; Z90.49 Acquired absence of other specified parts of digestive tract; Z95.1 Presence of aortocoronary bypass graft
CPT/HCPCS: 36415; 71046; 80053; 84484; 85025; 93005; 96360; 99284

== ENCOUNTER 2021-11-26 07:18 | Day surgery (SDC) | payer BC ==
[2021-10-06 11:21] VITALS: BMI 33.3
[~2021-11-26 07:18] MED LIST: LACTATED RINGERS 1,000 ML IV SCH
[2021-11-26] MEDS ORDERED: INSULIN ASPART (NovoLOG) 100 UNIT/ML VIAL SQ ONE (08:28)
[2021-11-26] MEDS ORDERED: LIDOCAINE 2% INJ 20 MG/ML (2 ML VIAL) ONE (08:30)
[2021-11-26] MEDS ORDERED: PROPOFOL 10 MG/ML 20 ML VIAL IV ONE (08:30)
[2021-11-26] MEDS ORDERED: MIDAZOLAM 2 MG/2 ML VIAL ONE (08:30)
[2021-11-26 08:31] VITALS: TEMP 97.6
[2021-11-26 08:31] LABS: Glucose,Whole Blood 208 mg/dL (70-110)
--- NOTE | 2021-11-26 08:49 | P.PCN ---
Date of Procedure: 11/26/21 Procedure(s) Performed: Brief history: Patient is a pleasant 61-year-old white male scheduled for an elective upper endoscopy as well as colonoscopy as a part of evaluation of abdominal pain and change in bowel habits for the last 3-4 months duration Procedure performed: Esophagogastroduodenoscopy biopsy Colonoscopy Preoperative diagnosis: Abdominal pain and change in bowel habits Anesthesia: MAC Procedure: After informed consent was obtained from the patient was brought into the endoscopy unit and IV sedation was administered by anesthesia under continuous monitoring. Initially upper endoscopy was done. The Olympus GF 160 video endoscope was inserted inserted into the mouth and esophagus intubated without any difficulty and was gradually advanced into the stomach and duodenum and carefully examined. The bulb and second part of the duodenum appeared normal. The scope was then withdrawn into the stomach adequately insufflated with air and upon careful examination the antrumhad mild antral gastritis and biopsies were done from this area. The body, cardia and fundus appeared normal. The scope was then withdrawn into the esophagus. The GE junction was located at 40 cm to the incisors. It appeared regular with no erythema erosions or ulcerations. Rest of the esophagus appeared normal. Biopsies were done from the distal esophagus Patient tolerated the procedure well. At this time the patient continued to remain sedation. Initial digital rectal examination was normal. Olympus CF 160 video colonoscope was then inserted into the rectum and gradually advanced to the cecum without any difficulty. Careful examination was performed as the scope was gradually being withdrawn. The prep was excellent. The cecum, ascending colon, transverse colon, descending colon, sigmoid colon and rectum appeared normal. Scattered sigmoid diverticulosis. Retroflexion was performed in the rectum and no lesions were noted. Patient tolerated the procedure well. Impression: 1.Upper endoscopy revealed mild antral gastritis but no evidence of esophagitis or peptic ulcer disease 2.Colonoscopy was within normal limits with no evidence of colorectal neoplasia. Scattered sigmoid diverticulosis. Recommendations: Findings of this examination were discussed with the patient as well asHis family. He was advised to follow with the biopsy results. Recommend a repeat screening colonoscopy in 10 years.
[2021-11-26 09:10] LABS: Glucose,Whole Blood 194 mg/dL (70-110)
[2021-11-26 09:34] VITALS: PULSE 65; RESP 16
[2021-11-26 09:51] VITALS: BP 146/89
== END 2021-11-26 10:25 | disposition home or self-care (01) ==
LOC: ORWHC2ENDO 07:18
PROVIDERS: ATTEND Internal Medicine Gastroenterology
DX: K29.50 Unspecified chronic gastritis without bleeding (principal); K57.30 Diverticulosis of large intestine without perforation or abscess without bleeding; I25.10 Atherosclerotic heart disease of native coronary artery without angina pectoris; I10 Essential (primary) hypertension; E78.5 Hyperlipidemia, unspecified; K21.9 Gastro-esophageal reflux disease without esophagitis; Z95.5 Presence of coronary angioplasty implant and graft; Z79.899 Other long term (current) drug therapy
CPT/HCPCS: 88305; 45378; 43239; J2250; J2704; J2001